=== PATIENT | male | born 1965 | race Hispanic/Latino ===

== ENCOUNTER 2022-05-10 11:15 | Inpatient (IN) | payer OTHER ==
[~2022-05-10 11:15] MED LIST: Iopamidol-370 76% 500 ML 1 ML ONE
[2022-05-10 12:23] LABS: ALT (SGPT) 9 U/L (8-55); AST (SGOT) 12 U/L (5-34); Albumin 4.6 g/dL (3.5-5.0); Alkaline Phosphatase 115 U/L (40-110); Anion Gap 15 mmol/L (10-20); BUN (Urea Nitrogen) 20 mg/dL (8.4-25.7); Bilirubin, Total 0.5 mg/dL (0.2-1.2); Calc. Creatinine Clearance 0 mL/min (70-130); Calcium 9.5 mg/dL (7.8-10.44); Carbon Dioxide 21 mmol/L (22-29); Chloride 105 mmol/L (98-107); Estimated GFR 80; Globulin 3.9 g/dL (2.4-3.5); Glucose 128 mg/dL (70-105); Lipase 21 U/L (8-78); Potassium 3.9 mmol/L (3.5-5.1); Protein, Total 8.5 g/dL (6.0-8.3); Sodium 137 mmol/L (136-145)
[2022-05-10 12:35] LABS: #Monocytes 0.5 thou/uL (0.11-0.59); #Neutrophils 11.8 thou/uL (1.40-6.50); %Basophils 0.1 % (0.0-1.0); %Eosinophils 0.1 % (0.0-10.0); %Lymphocytes 7.8 % (21.0-51.0); %Monocytes 3.4 % (0.0-10.0); %Neutrophils 88.6 % (42.0-75.0); Elliptocytes SLIGHT = 2-5 cells (100X) (0-1/hpf); Hemoglobin 9.2 g/dL (14.0-18.0); Hypochromia SLIGHT = 6-15 cells (100X) (0-5/hpf); MDiff Complete? YES; Mean Corpuscular HGB CONC 29.7 g/dL (32.0-36.0); Mean Corpuscular Volume 67.2 fL (78.0-98.0); Mean Platelet Volume 8.4 fL (7.4-10.4); Microcytosis MODERATE=15-30 cells (100X) (0-5/hpf); Platelet Count 570 thou/uL (130-400); Platelet Morphology Comment Appears Increased; RBC Distribution Width 16.4 % (11.5-14.5); Target Cells SLIGHT = 2-5 cells (100X) (0-1/hpf); White Blood Cell (WBC) Count 13.3 thou/uL (4.8-10.8)
[2022-05-10 13:21] LABS: Bilirubin Negative (Negative); Blood, Urine 3+ (Negative); Clarity Turbid (Clear); Glucose, Urine (Dipstick) Normal (Negative); Ketone, Urine Negative (Negative); Leukocyte 500 Leu/uL (Negative); Nitrite Negative (Negative); Protein, Urine (Dipstick) 30 mg/dL (Neg-Trace); Specific Gravity, Urine 1.015 (1.002-1.036); Squamous Epithelial None Seen HPF (0-3); Urobilinogen Normal mg/dL (Less than 2); pH, Urine 6.5 (5.0-9.0)
[2022-05-10 13:28] LABS: RBC/HPF 21-50 HPF (0-3); WBC/HPF 21-50 HPF (0-3)
[2022-05-10 13:29] LABS: Bacteria/HPF 1+ HPF (None Seen)
[2022-05-10] MEDS ORDERED: Ketorolac Tromethamine 30 MG/ML VIAL ONE (13:34)
[2022-05-10 13:57] LABS: Prothrombin Time 13.7 sec (12.0-14.7)
[2022-05-10 13:58] LABS: PTT 29.5 sec (22.9-36.1)
[2022-05-10 14:23] LABS: SARS-CoV-2 NAA Rapid Test Not Detected (NotDetected)
[2022-05-10] MEDS ORDERED: cefTRIAXone\\ROCEPHIN 2 GM VIAL ONE (14:41)
[2022-05-10] MEDS ORDERED: Aspirin Chewable 81 MG TAB ONE (14:59)
[2022-05-10] MEDS ORDERED: Rocuronium Bromide 10 MG/ML (10ML VIAL) ONE (15:04)
[2022-05-10] MEDS ORDERED: Midazolam HCl 2 mg/2 ml Vial ONE (15:04)
[2022-05-10] MEDS ORDERED: Fentanyl CADD 100 ML IV SCH (15:30)
[2022-05-10 15:32] LABS: Troponin I Less than 0.010 ng/mL (< 0.028)
[2022-05-10] MEDS ORDERED: Clindamycin/D5W 600 mg/50 ml Premix Bag ONE (15:33)
[2022-05-10] MEDS ORDERED: Aspirin 300 MG Suppository ONE (15:34)
[2022-05-10] MEDS ORDERED: Electrolyte Replacement Protocol 1 EACH IVPB SCH (15:37)
[2022-05-10 15:42] LABS: Actual Bicarbonate (HCO3a) 17.8 mEq/L (22-28); Analyzer IN Cardio ER; CO2 Tension 32.3 mmHg (35.0-45.0); Calcium, Ionized (arterial) 1.07 mmol/L (1.12-1.30); Carboxyhemoglobin (COHb) 0.7 gm% (0.0-3.0); Hemoglobin (Hb) 8.3 g/dL (14.0-18.0); O2 Tension (PaO2), arterial 139.5 mmHg (80.0-100.0); pH, Arterial 7.36 (7.35-7.45)
[2022-05-10 15:50] LABS: ALV-art Gradient 140.975 mmHg (0-20); Puncture Site LRA
[2022-05-10] MEDS ORDERED: Piperacillin/Tazobactam 3.375 GM in Sodium Chloride 0.9% 100 ML IVPB SCH (16:45)
[2022-05-10] MEDS ORDERED: Propofol 1,000 MG/100 ML VIAL IV ONE (16:50)
[2022-05-10] MEDS ORDERED: Aspirin 300 MG Suppository PR SCH (17:00)
[2022-05-10] MEDS ORDERED: Midazolam HCl 2 mg/2 ml Vial SLOW IVP PRN (17:42)
[2022-05-10] MEDS ORDERED: DISCONTINUE PREVIOUS NARCOTIC PAIN MEDICATIONS AND BENZODIAZEPINES FS SCH (17:45)
[2022-05-10] MEDS ORDERED: Propofol BOLUS 1,000 MG/100 ML VIAL IV PRN (17:45)
[2022-05-10] MEDS ORDERED: Propofol 1,000 MG/100 ML VIAL IV PRN (17:45)
[2022-05-10] MEDS ORDERED: Fentanyl BOLUS 250 ML IVPB PRN (17:45)
[2022-05-10] MEDS ORDERED: Morphine 2 MG/ML VIAL SLOW IVP PRN (17:45)
[2022-05-10] MEDS: Sodium Chloride 0.9% 1,000 ML IV SCH (17:45)
[2022-05-10 18:30] LABS: Hemoglobin A1c 5.5 % (4.0-6.0)
[2022-05-10 18:35] LABS: Magnesium 1.8 mg/dL (1.6-2.6)
[2022-05-10] MEDS: Multivitamins, Adult 10 ML, Folic Acid 1 MG, Thiamine HCl 100 MG in Dextrose 5 %-0.45 %... IV SCH (18:40)
[2022-05-10 18:43] LABS: Troponin I Less than 0.010 ng/mL (< 0.028)
[2022-05-10] MEDS: Famotidine/PF 20 mg/2ml Vial SLOW IVP SCH (20:58)
[2022-05-10] MEDS: Atorvastatin Calcium 40 MG TAB PO SCH (20:58)
[2022-05-10] MEDS ORDERED: Pantoprazole 40 MG VIAL IVP SCH (21:00)
[2022-05-10] MEDS ORDERED: Magnesium 2 GM/50 ML(in water) 2 GM in Premix Bag 1 BAG IVPB SCH (21:45)
[2022-05-10] MEDS: Piperacillin/Tazobactam 3.375 GM in Sodium Chloride 0.9% 100 ML IVPB SCH (22:34)
[2022-05-11 04:11] LABS: #Eosinphils 0.1 thou/uL (0.0-0.7); #Lymphocytes 2.7 thou/uL (1.20-3.40); #Monocytes 0.8 thou/uL (0.11-0.59); #Neutrophils 5.1 thou/uL (1.40-6.50); %Basophils 0.5 % (0.0-1.0); %Eosinophils 0.7 % (0.0-10.0); %Lymphocytes 30.9 % (21.0-51.0); %Monocytes 8.9 % (0.0-10.0); Hemoglobin 7.3 g/dL (14.0-18.0); Mean Corpuscular HGB CONC 28.4 g/dL (32.0-36.0); Mean Corpuscular Hemoglobin 19.5 pg (27.0-31.0); Mean Corpuscular Volume 68.6 fL (78.0-98.0); Mean Platelet Volume 8.4 fL (7.4-10.4); Platelet Count 418 thou/uL (130-400); RBC Distribution Width 16.6 % (11.5-14.5); Red Blood Cell (RBC) Count 3.76 mill/uL (4.70-6.10); White Blood Cell (WBC) Count 8.6 thou/uL (4.8-10.8)
[2022-05-11 04:22] LABS: Anion Gap 11 mmol/L (10-20); BUN (Urea Nitrogen) 18 mg/dL (8.4-25.7); Calc. Creatinine Clearance 88 mL/min (70-130); Calcium 8.6 mg/dL (7.8-10.44); Carbon Dioxide 23 mmol/L (22-29); Cardiac Risk 3.2 (Less than 4.5); Chloride 108 mmol/L (98-107); Cholesterol 119 mg/dl (< 200 Desired); Estimated GFR 82; Glucose 92 mg/dL (70-105); HDL Cholesterol 37 mg/dL (>60 Neg Risk); LDL Cholesterol, Calculated 69 mg/dL; Magnesium 2.5 mg/dL (1.6-2.6); Potassium 3.7 mmol/L (3.5-5.1); Sodium 138 mmol/L (136-145); Triglycerides 65 mg/dL (Less than 150)
[2022-05-11] MEDS: Piperacillin/Tazobactam 3.375 GM in Sodium Chloride 0.9% 100 ML IVPB SCH ×3 (06:40→22:10)
[2022-05-11] MEDS: Sodium Chloride 0.9% 1,000 ML IV SCH ×2 (08:50→17:45)
[2022-05-11] MEDS: Famotidine/PF 20 mg/2ml Vial SLOW IVP SCH ×2 (09:20→22:11)
[2022-05-11] MEDS: Enoxaparin Sodium 40 MG/0.4 ML SYRINGE SC SCH (09:20)
[2022-05-11] MEDS: Aspirin 300 MG Suppository PR SCH (10:07)
[2022-05-11] MEDS: Multivitamins, Adult 10 ML, Folic Acid 1 MG, Thiamine HCl 100 MG in Dextrose 5 %-0.45 %... IV SCH (17:17)
[2022-05-12] MEDS: Atorvastatin Calcium 40 MG TAB PO SCH ×2 (01:13→21:49)
[2022-05-12] MEDS: Piperacillin/Tazobactam 3.375 GM in Sodium Chloride 0.9% 100 ML IVPB SCH ×3 (05:37→21:47)
[2022-05-12 06:12] LABS: Anion Gap 13 mmol/L (10-20); BUN (Urea Nitrogen) 10 mg/dL (8.4-25.7); Calc. Creatinine Clearance 98 mL/min (70-130); Calcium 8.8 mg/dL (7.8-10.44); Carbon Dioxide 26 mmol/L (22-29); Chloride 101 mmol/L (98-107); Estimated GFR 92; Glucose 93 mg/dL (70-105); Potassium 3.5 mmol/L (3.5-5.1); Sodium 136 mmol/L (136-145)
[2022-05-12 06:18] LABS: #Lymphocytes 1.5 thou/uL (1.20-3.40); #Monocytes 0.6 thou/uL (0.11-0.59); #Neutrophils 5.5 thou/uL (1.40-6.50); %Basophils 0.5 % (0.0-1.0); %Eosinophils 0.5 % (0.0-10.0); %Lymphocytes 19.1 % (21.0-51.0); %Neutrophils 71.9 % (42.0-75.0); Hemoglobin 8.4 g/dL (14.0-18.0); Mean Corpuscular HGB CONC 29.3 g/dL (32.0-36.0); Mean Corpuscular Hemoglobin 20.2 pg (27.0-31.0); Mean Corpuscular Volume 68.8 fL (78.0-98.0); Mean Platelet Volume 8.6 fL (7.4-10.4); Platelet Count 457 thou/uL (130-400); RBC Distribution Width 16.8 % (11.5-14.5); Red Blood Cell (RBC) Count 4.16 mill/uL (4.70-6.10); White Blood Cell (WBC) Count 7.7 thou/uL (4.8-10.8)
[2022-05-12] MEDS ORDERED: Potassium Chloride 20 MEQ TAB PO SCH (08:00)
[2022-05-12] MEDS: Enoxaparin Sodium 40 MG/0.4 ML SYRINGE SC SCH (09:47)
[2022-05-12] MEDS: Aspirin 300 MG Suppository PR SCH (09:51)
[2022-05-12] MEDS: Famotidine/PF 20 mg/2ml Vial SLOW IVP SCH ×2 (09:51→21:47)
[2022-05-12] MEDS: Sodium Chloride 0.9% 1,000 ML IV SCH ×2 (09:52→21:48)
[2022-05-12] MEDS: Multivitamins, Adult 10 ML, Folic Acid 1 MG, Thiamine HCl 100 MG in Dextrose 5 %-0.45 %... IV SCH (19:37)
[2022-05-12] MEDS ORDERED: Tamsulosin HCl 0.4 MG CAP PO SCH (21:00)
[2022-05-12] MEDS: Doxazosin Mesylate 1 MG TAB PER TUBE SCH (21:49)
[2022-05-13 06:33] LABS: #Basophils 0.1 thou/uL (0.0-0.2); #Lymphocytes 1.5 thou/uL (1.20-3.40); #Monocytes 0.6 thou/uL (0.11-0.59); #Neutrophils 5.1 thou/uL (1.40-6.50); %Basophils 0.7 % (0.0-1.0); %Eosinophils 0.6 % (0.0-10.0); %Lymphocytes 20.8 % (21.0-51.0); %Monocytes 7.8 % (0.0-10.0); %Neutrophils 70.1 % (42.0-75.0); Hemoglobin 8.9 g/dL (14.0-18.0); Mean Corpuscular HGB CONC 28.3 g/dL (32.0-36.0); Mean Corpuscular Hemoglobin 19.6 pg (27.0-31.0); Mean Corpuscular Volume 69.3 fL (78.0-98.0); Platelet Count 475 thou/uL (130-400); RBC Distribution Width 16.5 % (11.5-14.5); Red Blood Cell (RBC) Count 4.53 mill/uL (4.70-6.10); White Blood Cell (WBC) Count 7.3 thou/uL (4.8-10.8)
[2022-05-13] MEDS: Piperacillin/Tazobactam 3.375 GM in Sodium Chloride 0.9% 100 ML IVPB SCH ×3 (06:43→21:27)
[2022-05-13] MEDS: Aspirin 300 MG Suppository PR SCH (09:50)
[2022-05-13] MEDS: Enoxaparin Sodium 40 MG/0.4 ML SYRINGE SC SCH (09:51)
[2022-05-13] MEDS: Famotidine/PF 20 mg/2ml Vial SLOW IVP SCH ×2 (09:51→21:28)
[2022-05-13 12:05] LABS: Hypochromia MODERATE=16-30 cells (100X) (0-5/hpf); Microcytosis MODERATE=15-30 cells (100X) (0-5/hpf); Ovalocytes MODERATE= 6-15 cells (100X) (0-1/hpf); Polychromasia SLIGHT = 2-3 cells (100X) (0-2/hpf)
[2022-05-13 14:58] LABS: Bilirubin Negative (Negative); Blood, Urine 3+ (Negative); Clarity Turbid (Clear); Glucose, Urine (Dipstick) Normal (Negative); Ketone, Urine 10 mg/dL (Negative); Leukocyte 250 Leu/uL (Negative); Nitrite Negative (Negative); Protein, Urine (Dipstick) 20 mg/dL (Neg-Trace); Specific Gravity, Urine 1.017 (1.002-1.036); Squamous Epithelial None Seen HPF (0-3); Urobilinogen Normal mg/dL (Less than 2); WBC/HPF 21-50 HPF (0-3)
[2022-05-13 15:01] LABS: Bacteria/HPF 1+ HPF (None Seen); Urine Culture Reflex Yes Yes
[2022-05-13] MEDS: Scopolamine 1.5 mg/72 hour Patch TD SCH (15:31)
[2022-05-13] MEDS: Nicotine 14 MG PATCH TOP SCH (15:31)
[2022-05-13] MEDS: Multivitamins, Adult 10 ML, Folic Acid 1 MG, Thiamine HCl 100 MG in Dextrose 5 %-0.45 %... IV SCH (18:30)
[2022-05-13] MEDS: Sodium Chloride 0.9% 1,000 ML IV SCH (21:20)
[2022-05-13] MEDS: Doxazosin Mesylate 1 MG TAB PER TUBE SCH (21:28)
[2022-05-13] MEDS: Atorvastatin Calcium 40 MG TAB PO SCH (21:28)
[2022-05-14] MEDS: Sodium Chloride 0.9% 1,000 ML IV SCH ×2 (03:46→17:18)
[2022-05-14] MEDS: Piperacillin/Tazobactam 3.375 GM in Sodium Chloride 0.9% 100 ML IVPB SCH ×3 (06:14→20:55)
[2022-05-14] MEDS: Enoxaparin Sodium 40 MG/0.4 ML SYRINGE SC SCH (09:14)
[2022-05-14] MEDS: Aspirin 300 MG Suppository PR SCH (09:14)
[2022-05-14] MEDS: Famotidine/PF 20 mg/2ml Vial SLOW IVP SCH ×2 (09:14→20:55)
[2022-05-14] MEDS: Nicotine 14 MG PATCH TOP SCH (13:32)
[2022-05-14] MEDS: Multivitamins, Adult 10 ML, Folic Acid 1 MG, Thiamine HCl 100 MG in Dextrose 5 %-0.45 %... IV SCH (16:24)
[2022-05-14] MEDS: Atorvastatin Calcium 40 MG TAB PO SCH (20:52)
[2022-05-14] MEDS: Doxazosin Mesylate 1 MG TAB PER TUBE SCH (20:56)
[2022-05-15] MEDS: Sodium Chloride 0.9% 1,000 ML IV SCH ×2 (05:05→16:27)
[2022-05-15] MEDS: Piperacillin/Tazobactam 3.375 GM in Sodium Chloride 0.9% 100 ML IVPB SCH ×3 (05:06→22:54)
[2022-05-15] MEDS: Famotidine/PF 20 mg/2ml Vial SLOW IVP SCH ×2 (09:34→22:53)
[2022-05-15] MEDS: Aspirin 300 MG Suppository PR SCH (09:42)
[2022-05-15] MEDS: Nicotine 14 MG PATCH TOP SCH (12:37)
[2022-05-15] MEDS: Multivitamins, Adult 10 ML, Folic Acid 1 MG, Thiamine HCl 100 MG in Dextrose 5 %-0.45 %... IV SCH (17:38)
[2022-05-15] MEDS ORDERED: Amlodipine 5 MG TAB PER TUBE SCH (19:15)
[2022-05-15] MEDS: Atorvastatin Calcium 40 MG TAB PO SCH (22:53)
[2022-05-15] MEDS: Doxazosin Mesylate 1 MG TAB PER TUBE SCH (22:53)
[2022-05-16] MEDS: Piperacillin/Tazobactam 3.375 GM in Sodium Chloride 0.9% 100 ML IVPB SCH ×3 (06:11→20:50)
[2022-05-16] MEDS: Famotidine/PF 20 mg/2ml Vial SLOW IVP SCH ×2 (08:22→20:50)
[2022-05-16] MEDS: Aspirin 300 MG Suppository PR SCH (08:24)
[2022-05-16] MEDS ORDERED: Amlodipine 5 MG TAB PER TUBE SCH (09:00)
[2022-05-16] MEDS: Enoxaparin Sodium 40 MG/0.4 ML SYRINGE SC SCH (09:46)
[2022-05-16] MEDS: Nicotine 14 MG PATCH TOP SCH (13:01)
[2022-05-16] MEDS: Scopolamine 1.5 mg/72 hour Patch TD SCH (14:59)
[2022-05-16] MEDS: Multivitamins, Adult 10 ML, Folic Acid 1 MG, Thiamine HCl 100 MG in Dextrose 5 %-0.45 %... IV SCH (17:06)
[2022-05-16] MEDS: Atorvastatin Calcium 40 MG TAB PO SCH (20:59)
[2022-05-16] MEDS: Doxazosin Mesylate 1 MG TAB PER TUBE SCH (20:59)
[2022-05-17] MEDS: Piperacillin/Tazobactam 3.375 GM in Sodium Chloride 0.9% 100 ML IVPB SCH ×3 (05:20→21:37)
[2022-05-17] MEDS ORDERED: Amlodipine 5 MG TAB PER TUBE SCH (07:34)
[2022-05-17] MEDS: Lisinopril 5 MG TAB PER TUBE SCH ×2 (09:59→11:38)
[2022-05-17] MEDS: Famotidine/PF 20 mg/2ml Vial SLOW IVP SCH ×3 (09:59→21:37)
[2022-05-17] MEDS: Enoxaparin Sodium 40 MG/0.4 ML SYRINGE SC SCH (11:37)
[2022-05-17] MEDS: Aspirin 300 MG Suppository PR SCH (11:38)
[2022-05-17] MEDS: Nicotine 14 MG PATCH TOP SCH (14:33)
[2022-05-17] MEDS: Multivitamins, Adult 10 ML, Folic Acid 1 MG, Thiamine HCl 100 MG in Dextrose 5 %-0.45 %... IV SCH (17:15)
[2022-05-17] MEDS: Doxazosin Mesylate 1 MG TAB PER TUBE SCH (21:37)
[2022-05-17] MEDS: Atorvastatin Calcium 40 MG TAB PO SCH (21:37)
[2022-05-18 05:24] LABS: #Basophils 0.1 thou/uL (0.0-0.2); #Eosinphils 0.3 thou/uL (0.0-0.7); #Lymphocytes 1.2 thou/uL (1.20-3.40); #Monocytes 0.4 thou/uL (0.11-0.59); #Neutrophils 7.1 thou/uL (1.40-6.50); %Basophils 0.6 % (0.0-1.0); %Eosinophils 3.1 % (0.0-10.0); %Monocytes 4.9 % (0.0-10.0); %Neutrophils 78.3 % (42.0-75.0); Hemoglobin 8.9 g/dL (14.0-18.0); Mean Corpuscular Hemoglobin 19.9 pg (27.0-31.0); Mean Platelet Volume 8.3 fL (7.4-10.4); Platelet Count 403 thou/uL (130-400); RBC Distribution Width 16.6 % (11.5-14.5); Red Blood Cell (RBC) Count 4.47 mill/uL (4.70-6.10)
[2022-05-18] MEDS: Piperacillin/Tazobactam 3.375 GM in Sodium Chloride 0.9% 100 ML IVPB SCH ×3 (05:28→22:11)
[2022-05-18 05:42] LABS: Anion Gap 11 mmol/L (10-20); BUN (Urea Nitrogen) 11 mg/dL (8.4-25.7); Calc. Creatinine Clearance 118 mL/min (70-130); Calcium 8.9 mg/dL (7.8-10.44); Carbon Dioxide 31 mmol/L (22-29); Chloride 98 mmol/L (98-107); Estimated GFR 106; Glucose 169 mg/dL (70-105); Potassium 3.5 mmol/L (3.5-5.1); Sodium 136 mmol/L (136-145)
[2022-05-18] MEDS ORDERED: Potassium Chloride 20 MEQ TAB PO SCH (08:00)
[2022-05-18] MEDS: Famotidine/PF 20 mg/2ml Vial SLOW IVP SCH ×2 (09:17→22:11)
[2022-05-18] MEDS: Lisinopril 5 MG TAB PER TUBE SCH (09:17)
[2022-05-18] MEDS: Aspirin 300 MG Suppository PR SCH (09:17)
[2022-05-18] MEDS: Enoxaparin Sodium 40 MG/0.4 ML SYRINGE SC SCH (10:04)
[2022-05-18] MEDS: Nicotine 14 MG PATCH TOP SCH (11:28)
[2022-05-18] MEDS: Multivitamins, Adult 10 ML, Folic Acid 1 MG, Thiamine HCl 100 MG in Dextrose 5 %-0.45 %... IV SCH (17:24)
[2022-05-18] MEDS: Doxazosin Mesylate 1 MG TAB PER TUBE SCH (22:11)
[2022-05-18] MEDS: Atorvastatin Calcium 40 MG TAB PO SCH (22:11)
[2022-05-19] MEDS: Lisinopril 5 MG TAB PER TUBE SCH (08:21)
[2022-05-19] MEDS: Piperacillin/Tazobactam 3.375 GM in Sodium Chloride 0.9% 100 ML IVPB SCH ×3 (08:24→21:56)
[2022-05-19] MEDS: Famotidine/PF 20 mg/2ml Vial SLOW IVP SCH (08:25)
[2022-05-19] MEDS: Enoxaparin Sodium 40 MG/0.4 ML SYRINGE SC SCH (08:25)
[2022-05-19] MEDS ORDERED: Aspirin 325 MG TAB PER TUBE SCH (09:00)
[2022-05-19] MEDS: Nicotine 14 MG PATCH TOP SCH (11:21)
[2022-05-19] MEDS: Scopolamine 1.5 mg/72 hour Patch TD SCH (13:30)
[2022-05-19] MEDS ORDERED: Aspirin 300 MG Suppository PR SCH (15:00)
[2022-05-19] MEDS ORDERED: Fentanyl CADD 0 ML ONE (16:10)
[2022-05-19] MEDS ORDERED: Ventilator Sedation Protocol FS PRN (16:11)
[2022-05-19 16:18] LABS: Actual Bicarbonate (HCO3a) 32.9 mEq/L (22-28); Base Excess (BEa) 3.5 mEq/L (-2.0 to +3.0); Calcium, Ionized (arterial) 1.11 mmol/L (1.12-1.30); Carboxyhemoglobin (COHb) 1.3 gm% (0.0-3.0); O2 Tension (PaO2), arterial 96.8 mmHg (80.0-100.0); Potassium - ABG Lab 4.32 mmol/L (3.70-5.30)
[2022-05-19 16:19] LABS: Puncture Site LBA
[2022-05-19] MEDS ORDERED: Fentanyl BOLUS 250 ML IVPB PRN (16:30)
[2022-05-19] MEDS ORDERED: Propofol BOLUS 1,000 MG/100 ML VIAL IV PRN (16:30)
[2022-05-19] MEDS ORDERED: DISCONTINUE PREVIOUS NARCOTIC PAIN MEDICATIONS AND BENZODIAZEPINES FS SCH (16:30)
[2022-05-19] MEDS ORDERED: Morphine 4 MG/ML VIAL SLOW IVP PRN (16:30)
[2022-05-19] MEDS: Fentanyl CADD 100 ML IV SCH (16:42)
[2022-05-19 16:55] LABS: Anion Gap 18 mmol/L (10-20); BUN (Urea Nitrogen) 15 mg/dL (8.4-25.7); Calc. Creatinine Clearance 86 mL/min (70-130); Calcium 8.1 mg/dL (7.8-10.44); Carbon Dioxide 26 mmol/L (22-29); Chloride 98 mmol/L (98-107); Estimated GFR 83; Glucose 218 mg/dL (70-105); Magnesium 2.1 mg/dL (1.6-2.6); Potassium 4.5 mmol/L (3.5-5.1); Sodium 137 mmol/L (136-145)
[2022-05-19 17:24] LABS: Troponin I 0.089 ng/mL (< 0.028)
[2022-05-19] MEDS: Vasopressin 20 UNIT, Admixture Fee 1 EACH in Sodium Chloride 0.9% 50 ML IV SCH ×2 (17:24→22:47)
[2022-05-19] MEDS: NOREPINEPHRINE 8 MG/250 ML-D5W 250 ML IVPB SCH (17:25)
[2022-05-19 17:57] LABS: Bacteria/HPF 2+ HPF (None Seen); Bilirubin Negative (Negative); Blood, Urine Trace (Negative); Clarity Turbid (Clear); Glucose, Urine (Dipstick) Normal (Negative); Ketone, Urine Negative (Negative); Leukocyte 75 Leu/uL (Negative); Nitrite Negative (Negative); Protein, Urine (Dipstick) 300 mg/dL (Neg-Trace); RBC/HPF 21-50 HPF (0-3); Specific Gravity, Urine 1.018 (1.002-1.036); Squamous Epithelial None Seen HPF (0-3); Urobilinogen Normal mg/dL (Less than 2); WBC/HPF 21-50 HPF (0-3); pH, Urine 6.5 (5.0-9.0)
[2022-05-19] MEDS ORDERED: Sodium Chloride 0.9% 1,000 ML IV SCH (18:30)
[2022-05-19] MEDS ORDERED: Lactated Ringer's 1,000 ML IV SCH ×2 (18:30→21:15)
[2022-05-19] MEDS: Multivitamins, Adult 10 ML, Folic Acid 1 MG, Thiamine HCl 100 MG in Dextrose 5 %-0.45 %... IV SCH (19:02)
[2022-05-19 21:14] LABS: Lactic Acid 1.6 mmol/L (0.5-2.2)
[2022-05-19 21:44] LABS: Troponin I 0.369 ng/mL (< 0.028)
[2022-05-19] MEDS: Tamsulosin HCl 0.4 MG CAP PO SCH (21:56)
[2022-05-19] MEDS: Atorvastatin Calcium 40 MG TAB PO SCH (21:56)
[2022-05-19] MEDS: Doxazosin Mesylate 1 MG TAB PER TUBE SCH (21:58)
[2022-05-20 01:34] LABS: Troponin I 0.405 ng/mL (< 0.028)
[2022-05-20] MEDS: NOREPINEPHRINE 8 MG/250 ML-D5W 250 ML IVPB SCH (03:46)
[2022-05-20] MEDS: Propofol 1,000 MG/100 ML VIAL IV PRN (03:49)
[2022-05-20 04:28] LABS: ALT (SGPT) 51 U/L (8-55); AST (SGOT) 49 U/L (5-34); Albumin 3.2 g/dL (3.5-5.0); Alkaline Phosphatase 67 U/L (40-110); Anion Gap 11 mmol/L (10-20); BUN (Urea Nitrogen) 14 mg/dL (8.4-25.7); Bilirubin, Total 0.6 mg/dL (0.2-1.2); Calc. Creatinine Clearance 107 mL/min (70-130); Calcium 8.2 mg/dL (7.8-10.44); Carbon Dioxide 26 mmol/L (22-29); Chloride 100 mmol/L (98-107); Estimated GFR 102; Globulin 2.7 g/dL (2.4-3.5); Glucose 123 mg/dL (70-105); Magnesium 1.6 mg/dL (1.6-2.6); Potassium 3.6 mmol/L (3.5-5.1); Protein, Total 5.9 g/dL (6.0-8.3); Sodium 133 mmol/L (136-145)
[2022-05-20 04:41] LABS: #Basophils 0.1 thou/uL (0.0-0.2); #Eosinphils 0.1 thou/uL (0.0-0.7); #Lymphocytes 2.3 thou/uL (1.20-3.40); #Monocytes 0.9 thou/uL (0.11-0.59); #Neutrophils 14.9 thou/uL (1.40-6.50); %Basophils 0.5 % (0.0-1.0); %Eosinophils 0.5 % (0.0-10.0); %Lymphocytes 12.6 % (21.0-51.0); %Monocytes 4.9 % (0.0-10.0); %Neutrophils 81.5 % (42.0-75.0); Hemoglobin 7.4 g/dL (14.0-18.0); Mean Corpuscular HGB CONC 28.9 g/dL (32.0-36.0); Mean Corpuscular Volume 69.1 fL (78.0-98.0); Mean Platelet Volume 8.4 fL (7.4-10.4); Platelet Count 389 thou/uL (130-400); Red Blood Cell (RBC) Count 3.72 mill/uL (4.70-6.10); White Blood Cell (WBC) Count 18.3 thou/uL (4.8-10.8)
[2022-05-20 04:42] LABS: Elliptocytes SLIGHT = 2-5 cells (100X) (0-1/hpf); Hypochromia SLIGHT = 6-15 cells (100X) (0-5/hpf); MDiff Complete? YES; Microcytosis MODERATE=15-30 cells (100X) (0-5/hpf)
[2022-05-20] MEDS ORDERED: Magnesium 2 GM/50 ML(in water) 2 GM in Premix Bag 1 BAG IVPB SCH (06:00)
[2022-05-20] MEDS: Vasopressin 20 UNIT, Admixture Fee 1 EACH in Sodium Chloride 0.9% 50 ML IV SCH (06:08)
[2022-05-20] MEDS: Piperacillin/Tazobactam 3.375 GM in Sodium Chloride 0.9% 100 ML IVPB SCH ×3 (06:09→21:55)
[2022-05-20 07:18] LABS: CO2 Tension 28.6 mmHg (35.0-45.0); Calcium, Ionized (arterial) 1.09 mmol/L (1.12-1.30); Carboxyhemoglobin (COHb) 0.9 gm% (0.0-3.0); Hemoglobin (Hb) 8.1 g/dL (14.0-18.0); O2 Tension (PaO2), arterial 150.4 mmHg (80.0-100.0); Potassium - ABG Lab 3.56 mmol/L (3.70-5.30)
[2022-05-20 07:21] LABS: pH, Arterial 7.58 (7.35-7.45)
[2022-05-20 07:22] LABS: Puncture Site Arterial Line
[2022-05-20] MEDS: Enoxaparin Sodium 40 MG/0.4 ML SYRINGE SC SCH (08:34)
[2022-05-20] MEDS: Pantoprazole 40 MG VIAL IVP SCH (08:34)
[2022-05-20] MEDS: Aspirin 300 MG Suppository PR SCH (08:35)
[2022-05-20] MEDS: Lisinopril 5 MG TAB PER TUBE SCH (09:56)
[2022-05-20] MEDS: Nicotine 14 MG PATCH TOP SCH (13:10)
[2022-05-20] MEDS: Midazolam HCl 2 mg/2 ml Vial SLOW IVP PRN (17:20)
[2022-05-20] MEDS ORDERED: Fentanyl 100 MCG/2 ML VIAL ONE (17:39)
[2022-05-20] MEDS: Fentanyl CADD 100 ML IV SCH (17:45)
[2022-05-20] MEDS: Multivitamins, Adult 10 ML, Folic Acid 1 MG, Thiamine HCl 100 MG in Dextrose 5 %-0.45 %... IV SCH (18:45)
[2022-05-20] MEDS: Tamsulosin HCl 0.4 MG CAP PO SCH (21:55)
[2022-05-20] MEDS: Atorvastatin Calcium 40 MG TAB PO SCH (21:55)
[2022-05-20] MEDS: Doxazosin Mesylate 1 MG TAB PER TUBE SCH (21:58)
[2022-05-21] MEDS: NOREPINEPHRINE 8 MG/250 ML-D5W 250 ML IVPB SCH ×2 (03:51→15:53)
[2022-05-21 04:53] LABS: ALT (SGPT) 38 U/L (8-55); AST (SGOT) 27 U/L (5-34); Albumin 3.2 g/dL (3.5-5.0); Alkaline Phosphatase 68 U/L (40-110); Anion Gap 10 mmol/L (10-20); BUN (Urea Nitrogen) 9 mg/dL (8.4-25.7); Bilirubin, Total 0.4 mg/dL (0.2-1.2); Calc. Creatinine Clearance 114 mL/min (70-130); Calcium 8.3 mg/dL (7.8-10.44); Carbon Dioxide 27 mmol/L (22-29); Chloride 100 mmol/L (98-107); Estimated GFR 103; Globulin 2.9 g/dL (2.4-3.5); Glucose 129 mg/dL (70-105); Magnesium 1.9 mg/dL (1.6-2.6); Potassium 3.5 mmol/L (3.5-5.1); Protein, Total 6.1 g/dL (6.0-8.3); Sodium 133 mmol/L (136-145)
[2022-05-21] MEDS ORDERED: Magnesium 2 GM/50 ML(in water) 2 GM in Premix Bag 1 BAG IVPB SCH (05:30)
[2022-05-21] MEDS: Piperacillin/Tazobactam 3.375 GM in Sodium Chloride 0.9% 100 ML IVPB SCH ×3 (05:49→21:50)
[2022-05-21 06:12] LABS: Band 8 % (5-11); Hemoglobin 7.4 g/dL (14.0-18.0); Lymphocytes 5 % (21-51); MDiff Complete? YES; Mean Corpuscular HGB CONC 28.5 g/dL (32.0-36.0); Mean Corpuscular Hemoglobin 19.9 pg (27.0-31.0); Mean Corpuscular Volume 69.8 fL (78.0-98.0); Monocytes 3 % (0-10); Neutrophil 84 % (42-75); Platelet Count 376 thou/uL (130-400); RBC Distribution Width 16.5 % (11.5-14.5); White Blood Cell (WBC) Count 20.9 thou/uL (4.8-10.8)
[2022-05-21 07:32] LABS: Actual Bicarbonate (HCO3a) 26.1 mEq/L (22-28); Base Excess (BEa) 1.5 mEq/L (-2.0 to +3.0); CO2 Tension 41.4 mmHg (35.0-45.0); Calcium, Ionized (arterial) 1.12 mmol/L (1.12-1.30); Carboxyhemoglobin (COHb) 1.3 gm% (0.0-3.0); Hemoglobin (Hb) 8.2 g/dL (14.0-18.0); O2 Tension (PaO2), arterial 74.4 mmHg (80.0-100.0); Potassium - ABG Lab 3.48 mmol/L (3.70-5.30); pH, Arterial 7.42 (7.35-7.45)
[2022-05-21 07:33] LABS: Puncture Site Arterial Line
[2022-05-21] MEDS: Pantoprazole 40 MG VIAL IVP SCH (09:24)
[2022-05-21] MEDS: Enoxaparin Sodium 40 MG/0.4 ML SYRINGE SC SCH (09:24)
[2022-05-21] MEDS: Aspirin 300 MG Suppository PR SCH (09:24)
[2022-05-21] MEDS: Lisinopril 5 MG TAB PER TUBE SCH (09:25)
[2022-05-21] MEDS ORDERED: Potassium Chloride 20 MEQ TAB PER TUBE SCH (11:15)
[2022-05-21] MEDS: Propofol 1,000 MG/100 ML VIAL IV PRN (11:17)
[2022-05-21] MEDS ORDERED: VANCOMYCIN 1.75 GM/500 ML BAG 1.75 GM in Premix Bag 1 BAG IVPB SCH (13:45)
[2022-05-21] MEDS: Nicotine 14 MG PATCH TOP SCH (14:02)
[2022-05-21] MEDS ORDERED: Fentanyl CADD 100 ML ONE (14:39)
[2022-05-21] MEDS: Fentanyl CADD 100 ML IV SCH (14:46)
[2022-05-21] MEDS: Multivitamins, Adult 10 ML, Folic Acid 1 MG, Thiamine HCl 100 MG in Dextrose 5 %-0.45 %... IV SCH (16:04)
[2022-05-21] MEDS ORDERED: Silodosin 8 MG CAP PO SCH (21:00)
[2022-05-21] MEDS: Atorvastatin Calcium 40 MG TAB PO SCH (21:50)
[2022-05-22 03:55] LABS: #Basophils 0.1 thou/uL (0.0-0.2); #Eosinphils 0.5 thou/uL (0.0-0.7); #Lymphocytes 1.3 thou/uL (1.20-3.40); #Monocytes 0.8 thou/uL (0.11-0.59); #Neutrophils 12.4 thou/uL (1.40-6.50); %Basophils 0.5 % (0.0-1.0); %Eosinophils 3.5 % (0.0-10.0); %Lymphocytes 8.5 % (21.0-51.0); %Monocytes 5.2 % (0.0-10.0); %Neutrophils 82.4 % (42.0-75.0); Hemoglobin 7.1 g/dL (14.0-18.0); Mean Corpuscular HGB CONC 28.3 g/dL (32.0-36.0); Mean Corpuscular Volume 70.8 fL (78.0-98.0); Mean Platelet Volume 8.3 fL (7.4-10.4); Platelet Count 358 thou/uL (130-400); RBC Distribution Width 16.5 % (11.5-14.5); Red Blood Cell (RBC) Count 3.55 mill/uL (4.70-6.10); White Blood Cell (WBC) Count 15.1 thou/uL (4.8-10.8)
[2022-05-22] MEDS: Propofol 1,000 MG/100 ML VIAL IV PRN ×2 (04:00→13:49)
[2022-05-22 04:16] LABS: ALT (SGPT) 28 U/L (8-55); AST (SGOT) 22 U/L (5-34); Alkaline Phosphatase 72 U/L (40-110); Anion Gap 10 mmol/L (10-20); BUN (Urea Nitrogen) 8 mg/dL (8.4-25.7); Bilirubin, Total 0.3 mg/dL (0.2-1.2); Calc. Creatinine Clearance 131 mL/min (70-130); Calcium 8.3 mg/dL (7.8-10.44); Carbon Dioxide 28 mmol/L (22-29); Chloride 101 mmol/L (98-107); Estimated GFR 107; Globulin 3.3 g/dL (2.4-3.5); Glucose 127 mg/dL (70-105); Potassium 3.3 mmol/L (3.5-5.1); Protein, Total 6.3 g/dL (6.0-8.3); Sodium 136 mmol/L (136-145)
[2022-05-22] MEDS ORDERED: Potassium Chloride 20 MEQ TAB PO SCH (04:30)
[2022-05-22] MEDS: NOREPINEPHRINE 8 MG/250 ML-D5W 250 ML IVPB SCH (05:40)
[2022-05-22] MEDS: VANCOMYCIN 1.25 GM/250 ML BAG 1.25 GM in Premix Bag 1 BAG IVPB SCH ×2 (05:42→16:42)
[2022-05-22] MEDS: Piperacillin/Tazobactam 3.375 GM in Sodium Chloride 0.9% 100 ML IVPB SCH ×3 (06:00→23:33)
[2022-05-22] MEDS ORDERED: Potassium Bicarbonate/Cit Ac 20 MEQ TAB PO SCH (06:15)
[2022-05-22 07:43] LABS: Actual Bicarbonate (HCO3a) 32.1 mEq/L (22-28); Base Excess (BEa) 6.1 mEq/L (-2.0 to +3.0); CO2 Tension 55.9 mmHg (35.0-45.0); Calcium, Ionized (arterial) 1.15 mmol/L (1.12-1.30); Carboxyhemoglobin (COHb) 1.1 gm% (0.0-3.0); Hemoglobin (Hb) 7.9 g/dL (14.0-18.0); Potassium - ABG Lab 3.81 mmol/L (3.70-5.30); pH, Arterial 7.38 (7.35-7.45)
[2022-05-22 08:04] LABS: O2 Tension (PaO2), arterial 53.5 mmHg (80.0-100.0)
[2022-05-22 08:05] LABS: ALV-art Gradient 161.825 mmHg (0-20); Puncture Site Arterial Line
[2022-05-22] MEDS: Aspirin 325 MG TAB PER TUBE SCH (08:58)
[2022-05-22] MEDS: Enoxaparin Sodium 40 MG/0.4 ML SYRINGE SC SCH (08:59)
[2022-05-22] MEDS: Lisinopril 5 MG TAB PER TUBE SCH (08:59)
[2022-05-22] MEDS: Pantoprazole 40 MG VIAL IVP SCH (08:59)
[2022-05-22 11:00] LABS: Potassium 3.9 mmol/L (3.5-5.1)
[2022-05-22] MEDS: Nicotine 14 MG PATCH TOP SCH (12:19)
[2022-05-22] MEDS: Scopolamine 1.5 mg/72 hour Patch TD SCH (15:08)
[2022-05-22] MEDS ORDERED: Potassium Bicarbonate/Cit Ac 20 MEQ TAB PER TUBE SCH (15:15)
[2022-05-22] MEDS: Acetaminophen 650 MG/20.3 ML UDCUP PER TUBE PRN (16:41)
[2022-05-22] MEDS: Atorvastatin Calcium 40 MG TAB PO SCH (20:11)
[2022-05-23 04:05] LABS: #Eosinphils 0.3 thou/uL (0.0-0.7); #Lymphocytes 0.8 thou/uL (1.20-3.40); #Monocytes 0.5 thou/uL (0.11-0.59); %Basophils 0.3 % (0.0-1.0); %Eosinophils 3.2 % (0.0-10.0); %Lymphocytes 8.1 % (21.0-51.0); %Monocytes 5.5 % (0.0-10.0); %Neutrophils 82.9 % (42.0-75.0); Hemoglobin 7.1 g/dL (14.0-18.0); Mean Corpuscular HGB CONC 27.9 g/dL (32.0-36.0); Mean Corpuscular Hemoglobin 19.9 pg (27.0-31.0); Mean Corpuscular Volume 71.2 fL (78.0-98.0); Mean Platelet Volume 8.6 fL (7.4-10.4); Platelet Count 391 thou/uL (130-400); RBC Distribution Width 16.2 % (11.5-14.5); Red Blood Cell (RBC) Count 3.57 mill/uL (4.70-6.10); White Blood Cell (WBC) Count 9.7 thou/uL (4.8-10.8)
[2022-05-23 04:12] LABS: Vancomycin, Trough 8.2 ug/mL
[2022-05-23 04:13] LABS: Anion Gap 10 mmol/L (10-20); BUN (Urea Nitrogen) 10 mg/dL (8.4-25.7); Calc. Creatinine Clearance 129 mL/min (70-130); Calcium 8.4 mg/dL (7.8-10.44); Carbon Dioxide 32 mmol/L (22-29); Chloride 98 mmol/L (98-107); Estimated GFR 107; Glucose 127 mg/dL (70-105); Potassium 3.4 mmol/L (3.5-5.1); Sodium 137 mmol/L (136-145)
[2022-05-23] MEDS ORDERED: Potassium Chloride 20 MEQ TAB PO SCH (04:45)
[2022-05-23] MEDS: Piperacillin/Tazobactam 3.375 GM in Sodium Chloride 0.9% 100 ML IVPB SCH ×3 (04:55→21:05)
[2022-05-23] MEDS: Acetaminophen 650 MG/20.3 ML UDCUP PER TUBE PRN (04:55)
[2022-05-23] MEDS: VANCOMYCIN 1.75 GM/500 ML BAG 1.75 GM in Premix Bag 1 BAG IVPB SCH ×2 (04:56→17:40)
[2022-05-23 07:34] LABS: Actual Bicarbonate (HCO3a) 32.2 mEq/L (22-28); Base Excess (BEa) 6.2 mEq/L (-2.0 to +3.0); CO2 Tension 53.9 mmHg (35.0-45.0); Calcium, Ionized (arterial) 1.12 mmol/L (1.12-1.30); Carboxyhemoglobin (COHb) 0.5 gm% (0.0-3.0); Hemoglobin (Hb) 10.1 g/dL (14.0-18.0); Potassium - ABG Lab 3.61 mmol/L (3.70-5.30); pH, Arterial 7.39 (7.35-7.45)
[2022-05-23 07:36] LABS: ALV-art Gradient 130.825 mmHg (0-20); Puncture Site RRA
[2022-05-23] MEDS ORDERED: AcetaZOLAMIDE 250 MG TAB PO SCH (09:00)
[2022-05-23] MEDS: Lisinopril 5 MG TAB PER TUBE SCH (10:06)
[2022-05-23] MEDS: Aspirin 325 MG TAB PER TUBE SCH (10:06)
[2022-05-23] MEDS: Enoxaparin Sodium 40 MG/0.4 ML SYRINGE SC SCH (10:07)
[2022-05-23] MEDS: Pantoprazole 40 MG VIAL IVP SCH (10:07)
[2022-05-23] MEDS: AcetaZOLAMIDE 250 MG TAB PER TUBE SCH ×2 (10:07→20:18)
[2022-05-23] MEDS: Propofol 1,000 MG/100 ML VIAL IV PRN ×2 (11:35→21:17)
[2022-05-23] MEDS: Nicotine 14 MG PATCH TOP SCH (11:36)
[2022-05-23] MEDS: Atorvastatin Calcium 40 MG TAB PO SCH (20:18)
[2022-05-24 04:20] LABS: Anion Gap 10 mmol/L (10-20); BUN (Urea Nitrogen) 8 mg/dL (8.4-25.7); Calc. Creatinine Clearance 119 mL/min (70-130); Calcium 8.8 mg/dL (7.8-10.44); Carbon Dioxide 24 mmol/L (22-29); Chloride 104 mmol/L (98-107); Estimated GFR 104; Glucose 111 mg/dL (70-105); Potassium 3.8 mmol/L (3.5-5.1); Sodium 134 mmol/L (136-145)
[2022-05-24] MEDS: VANCOMYCIN 1.75 GM/500 ML BAG 1.75 GM in Premix Bag 1 BAG IVPB SCH ×2 (04:24→19:40)
[2022-05-24 04:27] LABS: #Basophils 0.1 thou/uL (0.0-0.2); #Eosinphils 0.6 thou/uL (0.0-0.7); #Lymphocytes 0.8 thou/uL (1.20-3.40); #Monocytes 0.5 thou/uL (0.11-0.59); #Neutrophils 8.7 thou/uL (1.40-6.50); %Basophils 0.8 % (0.0-1.0); %Eosinophils 5.2 % (0.0-10.0); %Lymphocytes 7.4 % (21.0-51.0); %Monocytes 4.3 % (0.0-10.0); %Neutrophils 82.3 % (42.0-75.0); Hemoglobin 7.3 g/dL (14.0-18.0); Mean Corpuscular HGB CONC 27.6 g/dL (32.0-36.0); Mean Corpuscular Hemoglobin 19.9 pg (27.0-31.0); Mean Corpuscular Volume 72.1 fL (78.0-98.0); Mean Platelet Volume 8.5 fL (7.4-10.4); Platelet Count 463 thou/uL (130-400); RBC Distribution Width 16.4 % (11.5-14.5); Red Blood Cell (RBC) Count 3.66 mill/uL (4.70-6.10); White Blood Cell (WBC) Count 10.5 thou/uL (4.8-10.8)
[2022-05-24] MEDS: Propofol 1,000 MG/100 ML VIAL IV PRN ×2 (06:07→19:42)
[2022-05-24] MEDS: Piperacillin/Tazobactam 3.375 GM in Sodium Chloride 0.9% 100 ML IVPB SCH ×3 (06:07→21:05)
[2022-05-24 07:14] LABS: Actual Bicarbonate (HCO3a) 22.9 mEq/L (22-28); Base Excess (BEa) -2.7 mEq/L (-2.0 to +3.0); CO2 Tension 43.5 mmHg (35.0-45.0); Calcium, Ionized (arterial) 1.24 mmol/L (1.12-1.30); Carboxyhemoglobin (COHb) 0.9 gm% (0.0-3.0); Hemoglobin (Hb) 8.3 g/dL (14.0-18.0); O2 Tension (PaO2), arterial 91.7 mmHg (80.0-100.0); Potassium - ABG Lab 3.88 mmol/L (3.70-5.30); Puncture Site RRA; pH, Arterial 7.34 (7.35-7.45)
[2022-05-24 07:15] LABS: ALV-art Gradient 139.125 mmHg (0-20)
[2022-05-24] MEDS: Enoxaparin Sodium 40 MG/0.4 ML SYRINGE SC SCH (08:56)
[2022-05-24] MEDS: Pantoprazole 40 MG VIAL IVP SCH (08:57)
[2022-05-24] MEDS: Lisinopril 5 MG TAB PER TUBE SCH (08:57)
[2022-05-24] MEDS: Aspirin 325 MG TAB PER TUBE SCH (08:57)
[2022-05-24] MEDS ORDERED: Scopolamine 1.5 mg/72 hour Patch TD SCH (09:00)
[2022-05-24] MEDS: Metoclopramide HCl 10 MG/2 ML VIAL IVP SCH ×3 (09:30→21:05)
[2022-05-24] MEDS: Polyethylene Glycol 3350 17 GM Packet PER TUBE SCH (09:31)
[2022-05-24] MEDS: Nicotine 14 MG PATCH TOP SCH (14:45)
[2022-05-24 16:36] LABS: Vancomycin, Trough 17.9 ug/mL
[2022-05-24] MEDS: Atorvastatin Calcium 40 MG TAB PO SCH (21:05)
[2022-05-24] MEDS: Midazolam HCl 2 mg/2 ml Vial SLOW IVP PRN (23:51)
[2022-05-25] MEDS: Propofol 1,000 MG/100 ML VIAL IV PRN ×3 (02:33→20:31)
[2022-05-25] MEDS: Metoclopramide HCl 10 MG/2 ML VIAL IVP SCH ×4 (02:33→20:34)
[2022-05-25 04:56] LABS: #Basophils 0.1 thou/uL (0.0-0.2); #Eosinphils 0.4 thou/uL (0.0-0.7); #Lymphocytes 1.2 thou/uL (1.20-3.40); #Monocytes 0.7 thou/uL (0.11-0.59); #Neutrophils 10.9 thou/uL (1.40-6.50); %Basophils 0.5 % (0.0-1.0); %Eosinophils 2.8 % (0.0-10.0); %Lymphocytes 9.2 % (21.0-51.0); %Neutrophils 82.5 % (42.0-75.0); Hemoglobin 7.6 g/dL (14.0-18.0); Mean Corpuscular HGB CONC 27.7 g/dL (32.0-36.0); Mean Corpuscular Hemoglobin 19.7 pg (27.0-31.0); Mean Corpuscular Volume 71.2 fL (78.0-98.0); Mean Platelet Volume 8.1 fL (7.4-10.4); Platelet Count 537 thou/uL (130-400); RBC Distribution Width 16.3 % (11.5-14.5); Red Blood Cell (RBC) Count 3.83 mill/uL (4.70-6.10); White Blood Cell (WBC) Count 13.2 thou/uL (4.8-10.8)
[2022-05-25] MEDS: Piperacillin/Tazobactam 3.375 GM in Sodium Chloride 0.9% 100 ML IVPB SCH (04:59)
[2022-05-25 05:06] LABS: Anion Gap 11 mmol/L (10-20); BUN (Urea Nitrogen) 9 mg/dL (8.4-25.7); Calc. Creatinine Clearance 114 mL/min (70-130); Calcium 9.1 mg/dL (7.8-10.44); Carbon Dioxide 23 mmol/L (22-29); Chloride 107 mmol/L (98-107); Estimated GFR 104; Glucose 123 mg/dL (70-105); Potassium 3.9 mmol/L (3.5-5.1); Sodium 137 mmol/L (136-145)
[2022-05-25 07:24] LABS: Actual Bicarbonate (HCO3a) 22.9 mEq/L (22-28); Base Excess (BEa) -2.3 mEq/L (-2.0 to +3.0); Calcium, Ionized (arterial) 1.23 mmol/L (1.12-1.30); Carboxyhemoglobin (COHb) 0.9 gm% (0.0-3.0); Hemoglobin (Hb) 8.6 g/dL (14.0-18.0); O2 Tension (PaO2), arterial 93.3 mmHg (80.0-100.0); Potassium - ABG Lab 3.59 mmol/L (3.70-5.30); pH, Arterial 7.37 (7.35-7.45)
[2022-05-25 07:26] LABS: Puncture Site RRA
[2022-05-25] MEDS ORDERED: VANCOMYCIN 1.75 GM/500 ML BAG 1.75 GM in Premix Bag 1 BAG IVPB SCH (08:00)
[2022-05-25] MEDS: Polyethylene Glycol 3350 17 GM Packet PER TUBE SCH (09:21)
[2022-05-25] MEDS: Aspirin 325 MG TAB PER TUBE SCH (09:26)
[2022-05-25] MEDS: Lisinopril 5 MG TAB PER TUBE SCH (09:26)
[2022-05-25] MEDS: Enoxaparin Sodium 40 MG/0.4 ML SYRINGE SC SCH (09:27)
[2022-05-25] MEDS: Pantoprazole 40 MG VIAL IVP SCH (09:27)
[2022-05-25] MEDS: NOREPINEPHRINE 8 MG/250 ML-D5W 250 ML IVPB SCH (12:42)
[2022-05-25] MEDS: Nicotine 14 MG PATCH TOP SCH (13:31)
[2022-05-25] MEDS: Scopolamine 1.5 mg/72 hour Patch TD SCH ×2 (16:09→18:14)
[2022-05-25] MEDS: Atorvastatin Calcium 40 MG TAB PO SCH (20:32)
[2022-05-26] MEDS: NOREPINEPHRINE 8 MG/250 ML-D5W 250 ML IVPB SCH ×2 (02:25→20:22)
[2022-05-26] MEDS: Metoclopramide HCl 10 MG/2 ML VIAL IVP SCH ×4 (02:28→20:22)
[2022-05-26 05:15] LABS: #Basophils 0.1 thou/uL (0.0-0.2); #Eosinphils 0.5 thou/uL (0.0-0.7); #Lymphocytes 1.5 thou/uL (1.20-3.40); #Monocytes 0.7 thou/uL (0.11-0.59); #Neutrophils 10.3 thou/uL (1.40-6.50); %Basophils 0.5 % (0.0-1.0); %Eosinophils 4.1 % (0.0-10.0); %Lymphocytes 11.3 % (21.0-51.0); %Monocytes 5.3 % (0.0-10.0); %Neutrophils 78.7 % (42.0-75.0); Hemoglobin 7.6 g/dL (14.0-18.0); Mean Corpuscular HGB CONC 28.9 g/dL (32.0-36.0); Mean Corpuscular Hemoglobin 19.7 pg (27.0-31.0); Mean Corpuscular Volume 68.3 fL (78.0-98.0); Mean Platelet Volume 8.2 fL (7.4-10.4); Platelet Count 586 thou/uL (130-400); RBC Distribution Width 16.7 % (11.5-14.5); Red Blood Cell (RBC) Count 3.85 mill/uL (4.70-6.10); White Blood Cell (WBC) Count 13.1 thou/uL (4.8-10.8)
[2022-05-26 05:20] LABS: Anion Gap 13 mmol/L (10-20); BUN (Urea Nitrogen) 10 mg/dL (8.4-25.7); Calc. Creatinine Clearance 133 mL/min (70-130); Calcium 8.9 mg/dL (7.8-10.44); Carbon Dioxide 24 mmol/L (22-29); Chloride 106 mmol/L (98-107); Estimated GFR 109; Glucose 133 mg/dL (70-105); Potassium 3.9 mmol/L (3.5-5.1); Sodium 139 mmol/L (136-145)
[2022-05-26] MEDS ORDERED: Midazolam HCl 2 mg/2 ml Vial SLOW IVP SCH (06:00)
[2022-05-26] MEDS ORDERED: CEFAZOLIN 2 GM in Sodium Chloride 0.9% 100 ML IVPB SCH ×2 (06:00→11:30)
[2022-05-26] MEDS ORDERED: Lidocaine 2% 20 ml MDV SC SCH (06:00)
[2022-05-26] MEDS ORDERED: CEFAZOLIN 1 GM VIAL SLOW IVP SCH (06:00)
[2022-05-26 07:17] LABS: Actual Bicarbonate (HCO3a) 24.8 mEq/L (22-28); CO2 Tension 35.9 mmHg (35.0-45.0); Calcium, Ionized (arterial) 1.13 mmol/L (1.12-1.30); Carboxyhemoglobin (COHb) 1.3 gm% (0.0-3.0); Hemoglobin (Hb) 7.5 g/dL (14.0-18.0); O2 Tension (PaO2), arterial 102.5 mmHg (80.0-100.0); Potassium - ABG Lab 3.63 mmol/L (3.70-5.30); pH, Arterial 7.46 (7.35-7.45)
[2022-05-26 07:52] LABS: Puncture Site LRA
[2022-05-26 07:53] LABS: ALV-art Gradient 137.825 mmHg (0-20)
[2022-05-26] MEDS: Propofol 1,000 MG/100 ML VIAL IV PRN ×3 (09:45→17:25)
[2022-05-26] MEDS: Vecuronium 10 MG VIAL IVP SCH ×2 (09:45→11:20)
[2022-05-26] MEDS: Pantoprazole 40 MG VIAL IVP SCH (09:53)
[2022-05-26] MEDS: Lisinopril 5 MG TAB PER TUBE SCH (09:59)
[2022-05-26] MEDS: Aspirin 325 MG TAB PER TUBE SCH (09:59)
[2022-05-26] MEDS: Polyethylene Glycol 3350 17 GM Packet PER TUBE SCH (09:59)
[2022-05-26] MEDS: Fentanyl 100 MCG/2 ML VIAL SLOW IVP PRN ×2 (11:20→12:56)
[2022-05-26] MEDS: Midazolam HCl 2 mg/2 ml Vial SLOW IVP PRN ×3 (12:53→22:14)
[2022-05-26] MEDS: Nicotine 14 MG PATCH TOP SCH (13:46)
[2022-05-26] MEDS: Lactated Ringer's 1,000 ML IV SCH (15:39)
[2022-05-26] MEDS: Atorvastatin Calcium 40 MG TAB PO SCH (20:22)
[2022-05-27] MEDS: Midazolam HCl 2 mg/2 ml Vial SLOW IVP PRN (00:33)
[2022-05-27] MEDS: Propofol 1,000 MG/100 ML VIAL IV PRN ×3 (01:46→21:39)
[2022-05-27] MEDS: Metoclopramide HCl 10 MG/2 ML VIAL IVP SCH ×4 (02:59→21:39)
[2022-05-27] MEDS: Lactated Ringer's 1,000 ML IV SCH (02:59)
[2022-05-27 04:47] LABS: Anion Gap 12 mmol/L (10-20); BUN (Urea Nitrogen) 11 mg/dL (8.4-25.7); Calc. Creatinine Clearance 131 mL/min (70-130); Calcium 8.6 mg/dL (7.8-10.44); Carbon Dioxide 26 mmol/L (22-29); Chloride 105 mmol/L (98-107); Estimated GFR 108; Glucose 121 mg/dL (70-105); Potassium 3.7 mmol/L (3.5-5.1); Sodium 139 mmol/L (136-145)
[2022-05-27 04:50] LABS: #Basophils 0.1 thou/uL (0.0-0.2); #Eosinphils 0.4 thou/uL (0.0-0.7); #Lymphocytes 1.1 thou/uL (1.20-3.40); #Monocytes 0.6 thou/uL (0.11-0.59); #Neutrophils 6.9 thou/uL (1.40-6.50); %Basophils 1.5 % (0.0-1.0); %Eosinophils 4.6 % (0.0-10.0); %Lymphocytes 11.8 % (21.0-51.0); %Monocytes 6.9 % (0.0-10.0); %Neutrophils 75.2 % (42.0-75.0); Hemoglobin 7.1 g/dL (14.0-18.0); Mean Corpuscular Hemoglobin 19.7 pg (27.0-31.0); Mean Corpuscular Volume 67.7 fL (78.0-98.0); Mean Platelet Volume 8.3 fL (7.4-10.4); Platelet Count 575 thou/uL (130-400); RBC Distribution Width 16.5 % (11.5-14.5); Red Blood Cell (RBC) Count 3.61 mill/uL (4.70-6.10); White Blood Cell (WBC) Count 9.1 thou/uL (4.8-10.8)
[2022-05-27] MEDS: Lansoprazole 3 MG/ML ORAL SUSPENSION PER TUBE SCH (09:07)
[2022-05-27] MEDS: Aspirin 325 MG TAB PER TUBE SCH (09:07)
[2022-05-27] MEDS: Polyethylene Glycol 3350 17 GM Packet PER TUBE SCH (09:08)
[2022-05-27] MEDS: Enoxaparin Sodium 40 MG/0.4 ML SYRINGE SC SCH (09:08)
[2022-05-27] MEDS: Lisinopril 5 MG TAB PER TUBE SCH (09:08)
[2022-05-27] MEDS ORDERED: Sodium Chloride 0.9% 500 ML IV SCH (11:00)
[2022-05-27] MEDS ORDERED: Lactated Ringer's 500 ML IV SCH ×2 (11:00→19:00)
[2022-05-27] MEDS: Nicotine 14 MG PATCH TOP SCH (12:22)
[2022-05-27] MEDS: Atorvastatin Calcium 40 MG TAB PO SCH (21:38)
[2022-05-27] MEDS: cefTRIAXone\\ROCEPHIN 1 GM in Sodium Chloride 0.9% 100 ML IVPB SCH (21:38)
[2022-05-27] MEDS: Acetaminophen 650 MG/20.3 ML UDCUP PER TUBE PRN (22:30)
[2022-05-28] MEDS: NOREPINEPHRINE 8 MG/250 ML-D5W 250 ML IVPB SCH (00:42)
[2022-05-28] MEDS: Metoclopramide HCl 10 MG/2 ML VIAL IVP SCH ×4 (02:38→20:23)
[2022-05-28] MEDS: Propofol 1,000 MG/100 ML VIAL IV PRN (04:18)
[2022-05-28 05:00] LABS: #Basophils 0.1 thou/uL (0.0-0.2); #Eosinphils 0.2 thou/uL (0.0-0.7); #Lymphocytes 1.3 thou/uL (1.20-3.40); #Monocytes 0.7 thou/uL (0.11-0.59); #Neutrophils 6.5 thou/uL (1.40-6.50); %Basophils 1.3 % (0.0-1.0); %Eosinophils 2.5 % (0.0-10.0); %Monocytes 7.7 % (0.0-10.0); %Neutrophils 73.5 % (42.0-75.0); Hemoglobin 6.6 g/dL (14.0-18.0); Mean Corpuscular Hemoglobin 19.4 pg (27.0-31.0); Mean Corpuscular Volume 67.1 fL (78.0-98.0); Mean Platelet Volume 8.5 fL (7.4-10.4); Platelet Count 593 thou/uL (130-400); RBC Distribution Width 16.7 % (11.5-14.5); Red Blood Cell (RBC) Count 3.39 mill/uL (4.70-6.10); White Blood Cell (WBC) Count 8.9 thou/uL (4.8-10.8)
[2022-05-28 05:08] LABS: Anion Gap 10 mmol/L (10-20); BUN (Urea Nitrogen) 10 mg/dL (8.4-25.7); Calc. Creatinine Clearance 133 mL/min (70-130); Calcium 8.3 mg/dL (7.8-10.44); Carbon Dioxide 28 mmol/L (22-29); Chloride 103 mmol/L (98-107); Estimated GFR 109; Glucose 112 mg/dL (70-105); Potassium 3.2 mmol/L (3.5-5.1); Sodium 138 mmol/L (136-145)
[2022-05-28] MEDS: Potassium Chloride 20 MEQ in Premix Bag 1 BAG IVPB SCH ×2 (08:07→10:09)
[2022-05-28] MEDS: Aspirin 325 MG TAB PER TUBE SCH (08:07)
[2022-05-28] MEDS: Enoxaparin Sodium 40 MG/0.4 ML SYRINGE SC SCH (08:07)
[2022-05-28] MEDS: Lisinopril 5 MG TAB PER TUBE SCH (08:08)
[2022-05-28] MEDS: Polyethylene Glycol 3350 17 GM Packet PER TUBE SCH (08:08)
[2022-05-28] MEDS: Lansoprazole 3 MG/ML ORAL SUSPENSION PER TUBE SCH (08:10)
[2022-05-28] MEDS: Nicotine 14 MG PATCH TOP SCH (13:00)
[2022-05-28] MEDS: Midazolam HCl 2 mg/2 ml Vial SLOW IVP PRN (14:15)
[2022-05-28] MEDS ORDERED: Fentanyl CADD 100 ML IV SCH (15:00)
[2022-05-28] MEDS ORDERED: Fentanyl BOLUS 250 ML IVPB PRN (15:00)
[2022-05-28] MEDS ORDERED: Fentanyl CADD 100 ML ONE (16:18)
[2022-05-28 16:20] LABS: Potassium 3.7 mmol/L (3.5-5.1)
[2022-05-28] MEDS: Acetaminophen 650 MG/20.3 ML UDCUP PER TUBE PRN (16:57)
[2022-05-28] MEDS: Scopolamine 1.5 mg/72 hour Patch TD SCH (18:29)
[2022-05-28] MEDS: Atorvastatin Calcium 40 MG TAB PO SCH (20:23)
[2022-05-28] MEDS: cefTRIAXone\\ROCEPHIN 1 GM in Sodium Chloride 0.9% 100 ML IVPB SCH (20:23)
[2022-05-29] MEDS: Acetaminophen 650 MG/20.3 ML UDCUP PER TUBE PRN ×3 (00:30→17:33)
[2022-05-29] MEDS: Metoclopramide HCl 10 MG/2 ML VIAL IVP SCH ×4 (03:28→20:27)
[2022-05-29 04:46] LABS: #Basophils 0.1 thou/uL (0.0-0.2); #Eosinphils 0.1 thou/uL (0.0-0.7); #Monocytes 0.6 thou/uL (0.11-0.59); %Basophils 0.8 % (0.0-1.0); %Eosinophils 1.1 % (0.0-10.0); %Lymphocytes 9.9 % (21.0-51.0); %Monocytes 6.6 % (0.0-10.0); %Neutrophils 81.7 % (42.0-75.0); Hemoglobin 7.2 g/dL (14.0-18.0); Mean Corpuscular HGB CONC 29.5 g/dL (32.0-36.0); Mean Corpuscular Hemoglobin 20.7 pg (27.0-31.0); Mean Corpuscular Volume 70.3 fL (78.0-98.0); Mean Platelet Volume 7.6 fL (7.4-10.4); Platelet Count 594 thou/uL (130-400); RBC Distribution Width 18.1 % (11.5-14.5); Red Blood Cell (RBC) Count 3.45 mill/uL (4.70-6.10); White Blood Cell (WBC) Count 9.8 thou/uL (4.8-10.8)
[2022-05-29 05:23] LABS: Anion Gap 11 mmol/L (10-20); BUN (Urea Nitrogen) 16 mg/dL (8.4-25.7); Calc. Creatinine Clearance 0 mL/min (70-130); Calcium 8.1 mg/dL (7.8-10.44); Carbon Dioxide 27 mmol/L (22-29); Chloride 100 mmol/L (98-107); Estimated GFR 108; Glucose 113 mg/dL (70-105); Potassium 3.5 mmol/L (3.5-5.1); Sodium 134 mmol/L (136-145)
[2022-05-29] MEDS ORDERED: Potassium Bicarbonate/Cit Ac 20 MEQ TAB PER TUBE SCH (08:00)
[2022-05-29] MEDS: Lisinopril 5 MG TAB PER TUBE SCH (08:19)
[2022-05-29] MEDS: Lansoprazole 3 MG/ML ORAL SUSPENSION PER TUBE SCH (08:19)
[2022-05-29] MEDS: Polyethylene Glycol 3350 17 GM Packet PER TUBE SCH (08:19)
[2022-05-29] MEDS: Ondansetron PF 4 MG/2 ML Vial IVP PRN (10:53)
[2022-05-29] MEDS ORDERED: Piperacillin/Tazobactam 3.375 GM in Sodium Chloride 0.9% 100 ML IVPB SCH (11:45)
[2022-05-29] MEDS: Nicotine 14 MG PATCH TOP SCH (12:30)
[2022-05-29] MEDS: Vancomycin 1.5 GRAM/300 ML BAG 1.5 GM in Premix Bag 1 BAG IVPB SCH (13:57)
[2022-05-29] MEDS: Piperacillin/Tazobactam 3.375 GM in Sodium Chloride 0.9% 100 ML IVPB SCH (17:32)
[2022-05-29] MEDS: NOREPINEPHRINE 8 MG/250 ML-D5W 250 ML IVPB SCH (19:30)
[2022-05-29] MEDS: Atorvastatin Calcium 40 MG TAB PO SCH (20:27)
[2022-05-30] MEDS: Piperacillin/Tazobactam 3.375 GM in Sodium Chloride 0.9% 100 ML IVPB SCH ×2 (00:48→08:07)
[2022-05-30] MEDS: Vancomycin 1.5 GRAM/300 ML BAG 1.5 GM in Premix Bag 1 BAG IVPB SCH ×2 (00:50→11:30)
[2022-05-30] MEDS: Acetaminophen 650 MG/20.3 ML UDCUP PER TUBE PRN ×2 (00:55→19:13)
[2022-05-30] MEDS: Metoclopramide HCl 10 MG/2 ML VIAL IVP SCH ×4 (03:06→20:19)
[2022-05-30 05:04] LABS: #Eosinphils 0.3 thou/uL (0.0-0.7); #Lymphocytes 0.9 thou/uL (1.20-3.40); #Monocytes 0.4 thou/uL (0.11-0.59); #Neutrophils 5.9 thou/uL (1.40-6.50); %Basophils 0.4 % (0.0-1.0); %Lymphocytes 11.9 % (21.0-51.0); %Monocytes 5.5 % (0.0-10.0); %Neutrophils 78.2 % (42.0-75.0); Hemoglobin 6.8 g/dL (14.0-18.0); Mean Corpuscular HGB CONC 29.6 g/dL (32.0-36.0); Mean Corpuscular Hemoglobin 20.9 pg (27.0-31.0); Mean Corpuscular Volume 70.6 fL (78.0-98.0); Mean Platelet Volume 7.8 fL (7.4-10.4); Platelet Count 571 thou/uL (130-400); RBC Distribution Width 18.5 % (11.5-14.5); Red Blood Cell (RBC) Count 3.26 mill/uL (4.70-6.10); White Blood Cell (WBC) Count 7.5 thou/uL (4.8-10.8)
[2022-05-30 05:14] LABS: Anion Gap 10 mmol/L (10-20); BUN (Urea Nitrogen) 15 mg/dL (8.4-25.7); Calc. Creatinine Clearance 131 mL/min (70-130); Calcium 8.2 mg/dL (7.8-10.44); Carbon Dioxide 27 mmol/L (22-29); Chloride 102 mmol/L (98-107); Estimated GFR 108; Glucose 133 mg/dL (70-105); Potassium 3.4 mmol/L (3.5-5.1); Sodium 136 mmol/L (136-145)
[2022-05-30] MEDS: Potassium Chloride 20 MEQ in Premix Bag 1 BAG IVPB SCH ×2 (08:06→11:29)
[2022-05-30] MEDS: Lansoprazole 3 MG/ML ORAL SUSPENSION PER TUBE SCH (08:07)
[2022-05-30] MEDS: Lisinopril 5 MG TAB PER TUBE SCH (08:08)
[2022-05-30] MEDS: Polyethylene Glycol 3350 17 GM Packet PER TUBE SCH (08:08)
[2022-05-30] MEDS: Aspirin 325 MG TAB PER TUBE SCH (08:09)
[2022-05-30] MEDS: Enoxaparin Sodium 40 MG/0.4 ML SYRINGE SC SCH (08:09)
[2022-05-30] MEDS ORDERED: Morphine 4 MG/ML VIAL SLOW IVP PRN (08:22)
[2022-05-30] MEDS ORDERED: Midazolam HCl 2 mg/2 ml Vial SLOW IVP PRN (08:23)
[2022-05-30] MEDS: Nicotine 14 MG PATCH TOP SCH (11:30)
[2022-05-30] MEDS ORDERED: Meropenem 1 GM in Sodium Chloride 0.9% 100 ML IVPB SCH (16:00)
[2022-05-30] MEDS: Ondansetron PF 4 MG/2 ML Vial IVP PRN (19:14)
[2022-05-30] MEDS: Atorvastatin Calcium 40 MG TAB PO SCH (20:33)
[2022-05-30] MEDS: Meropenem 1 GM in Sodium Chloride 0.9% 100 ML IVPB SCH (23:26)
[2022-05-30 23:36] LABS: Vancomycin, Trough 13.2 ug/mL
[2022-05-31] MEDS: Vancomycin 1.5 GRAM/300 ML BAG 1.5 GM in Premix Bag 1 BAG IVPB SCH ×5 (00:22→23:58)
[2022-05-31] MEDS: Dexmedetomidine 1,000 MCG in Sodium Chloride 0.9% 250 ML 240 ML IVPB SCH ×3 (01:41→19:08)
[2022-05-31] MEDS: Metoclopramide HCl 10 MG/2 ML VIAL IVP SCH ×4 (03:00→20:32)
[2022-05-31 04:04] LABS: #Eosinphils 0.5 thou/uL (0.0-0.7); #Monocytes 0.3 thou/uL (0.11-0.59); #Neutrophils 6.2 thou/uL (1.40-6.50); %Basophils 0.5 % (0.0-1.0); %Lymphocytes 12.4 % (21.0-51.0); %Monocytes 3.8 % (0.0-10.0); %Neutrophils 77.3 % (42.0-75.0); Hemoglobin 8.3 g/dL (14.0-18.0); Mean Corpuscular Hemoglobin 21.5 pg (27.0-31.0); Mean Corpuscular Volume 71.6 fL (78.0-98.0); Mean Platelet Volume 7.7 fL (7.4-10.4); Platelet Count 597 thou/uL (130-400); RBC Distribution Width 18.7 % (11.5-14.5); Red Blood Cell (RBC) Count 3.87 mill/uL (4.70-6.10)
[2022-05-31 04:13] LABS: Anion Gap 9 mmol/L (10-20); BUN (Urea Nitrogen) 10 mg/dL (8.4-25.7); Calc. Creatinine Clearance 136 mL/min (70-130); Calcium 8.3 mg/dL (7.8-10.44); Carbon Dioxide 28 mmol/L (22-29); Chloride 103 mmol/L (98-107); Estimated GFR 110; Glucose 137 mg/dL (70-105); Potassium 3.6 mmol/L (3.5-5.1); Sodium 136 mmol/L (136-145)
[2022-05-31] MEDS: Meropenem 1 GM in Sodium Chloride 0.9% 100 ML IVPB SCH ×3 (08:59→23:59)
[2022-05-31] MEDS: Lisinopril 5 MG TAB PER TUBE SCH (09:59)
[2022-05-31] MEDS: Enoxaparin Sodium 40 MG/0.4 ML SYRINGE SC SCH (10:00)
[2022-05-31] MEDS: Polyethylene Glycol 3350 17 GM Packet PER TUBE SCH (10:00)
[2022-05-31] MEDS: Aspirin 325 MG TAB PER TUBE SCH (10:00)
[2022-05-31] MEDS: Lansoprazole 3 MG/ML ORAL SUSPENSION PER TUBE SCH (10:07)
[2022-05-31] MEDS: Nicotine 14 MG PATCH TOP SCH (14:30)
[2022-05-31] MEDS: Acetaminophen 650 MG/20.3 ML UDCUP PER TUBE PRN (14:31)
[2022-05-31] MEDS: Scopolamine 1.5 mg/72 hour Patch TD SCH (19:03)
[2022-05-31] MEDS: Atorvastatin Calcium 40 MG TAB PO SCH (20:32)
[2022-06-01] MEDS: Metoclopramide HCl 10 MG/2 ML VIAL IVP SCH ×4 (03:00→21:59)
[2022-06-01 04:32] LABS: Anion Gap 12 mmol/L (10-20); BUN (Urea Nitrogen) 14 mg/dL (8.4-25.7); Carbon Dioxide 26 mmol/L (22-29); Chloride 103 mmol/L (98-107); Potassium 3.8 mmol/L (3.5-5.1); Sodium 137 mmol/L (136-145)
[2022-06-01 04:33] LABS: Calc. Creatinine Clearance 129 mL/min (70-130); Calcium 8.3 mg/dL (7.8-10.44); Estimated GFR 108; Glucose 133 mg/dL (70-105)
[2022-06-01 06:14] LABS: #Basophils 0.1 thou/uL (0.0-0.2); #Eosinphils 0.5 thou/uL (0.0-0.7); #Lymphocytes 0.9 thou/uL (1.20-3.40); #Monocytes 0.4 thou/uL (0.11-0.59); #Neutrophils 6.1 thou/uL (1.40-6.50); %Basophils 0.7 % (0.0-1.0); %Eosinophils 5.7 % (0.0-10.0); %Lymphocytes 11.7 % (21.0-51.0); %Monocytes 5.1 % (0.0-10.0); %Neutrophils 76.8 % (42.0-75.0); Anisocytosis SLIGHT = 6-15 cells (100X) (0-5/hpf); Elliptocytes SLIGHT = 2-5 cells (100X) (0-1/hpf); Hemoglobin 8.8 g/dL (14.0-18.0); MDiff Complete? YES; Mean Corpuscular HGB CONC 30.4 g/dL (32.0-36.0); Mean Corpuscular Hemoglobin 22.1 pg (27.0-31.0); Mean Corpuscular Volume 72.9 fL (78.0-98.0); Mean Platelet Volume 7.8 fL (7.4-10.4); Platelet Count 645 thou/uL (130-400); RBC Distribution Width 19.1 % (11.5-14.5); Red Blood Cell (RBC) Count 3.99 mill/uL (4.70-6.10); White Blood Cell (WBC) Count 7.9 thou/uL (4.8-10.8)
[2022-06-01] MEDS: Dexmedetomidine 1,000 MCG in Sodium Chloride 0.9% 250 ML 240 ML IVPB SCH ×2 (06:50→16:09)
[2022-06-01 06:52] LABS: Actual Bicarbonate (HCO3a) 26.2 mEq/L (22-28); Base Excess (BEa) 2.4 mEq/L (-2.0 to +3.0); CO2 Tension 37.3 mmHg (35.0-45.0); Calcium, Ionized (arterial) 1.13 mmol/L (1.12-1.30); Carboxyhemoglobin (COHb) 0.8 gm% (0.0-3.0); Hemoglobin (Hb) 9.2 g/dL (14.0-18.0); O2 Tension (PaO2), arterial 89.3 mmHg (80.0-100.0); Potassium - ABG Lab 3.73 mmol/L (3.70-5.30); pH, Arterial 7.46 (7.35-7.45)
[2022-06-01 06:53] LABS: Puncture Site RRA
[2022-06-01 06:54] LABS: ALV-art Gradient 149.275 mmHg (0-20)
[2022-06-01] MEDS: Meropenem 1 GM in Sodium Chloride 0.9% 100 ML IVPB SCH ×2 (08:50→15:30)
[2022-06-01] MEDS: Aspirin 325 MG TAB PER TUBE SCH (09:57)
[2022-06-01] MEDS: Polyethylene Glycol 3350 17 GM Packet PER TUBE SCH (09:57)
[2022-06-01] MEDS: Enoxaparin Sodium 40 MG/0.4 ML SYRINGE SC SCH (09:57)
[2022-06-01] MEDS: Lansoprazole 3 MG/ML ORAL SUSPENSION PER TUBE SCH (10:00)
[2022-06-01 11:17] LABS: Vancomycin, Trough 16.2 ug/mL
[2022-06-01 12:04] LABS: ALT (SGPT) 47 U/L (8-55); AST (SGOT) 28 U/L (5-34); Alkaline Phosphatase 96 U/L (40-110); Bilirubin, Direct 0.1 mg/dL (0.1-0.3); Bilirubin, Total 0.2 mg/dL (0.2-1.2); Protein, Total 6.4 g/dL (6.0-8.3)
[2022-06-01] MEDS: guaiFENesin 200 MG TAB PO PRN (12:13)
[2022-06-01] MEDS: Ondansetron PF 4 MG/2 ML Vial IVP PRN (12:13)
[2022-06-01] MEDS: Vancomycin 1.5 GRAM/300 ML BAG 1.5 GM in Premix Bag 1 BAG IVPB SCH ×2 (12:18→23:43)
[2022-06-01] MEDS: Nicotine 14 MG PATCH TOP SCH (12:23)
[2022-06-01] MEDS: Atorvastatin Calcium 40 MG TAB PO SCH (21:59)
[2022-06-02] MEDS: Dexmedetomidine 1,000 MCG in Sodium Chloride 0.9% 250 ML 240 ML IVPB SCH ×3 (01:53→23:25)
[2022-06-02] MEDS: Meropenem 1 GM in Sodium Chloride 0.9% 100 ML IVPB SCH ×3 (01:58→15:29)
[2022-06-02 04:20] LABS: Hemoglobin 8.6 g/dL (14.0-18.0); Mean Corpuscular HGB CONC 29.1 g/dL (32.0-36.0); Mean Corpuscular Hemoglobin 21.2 pg (27.0-31.0); Mean Corpuscular Volume 72.7 fL (78.0-98.0); Mean Platelet Volume 7.9 fL (7.4-10.4); Platelet Count 722 thou/uL (130-400); RBC Distribution Width 19.4 % (11.5-14.5); Red Blood Cell (RBC) Count 4.07 mill/uL (4.70-6.10); White Blood Cell (WBC) Count 7.7 thou/uL (4.8-10.8)
[2022-06-02 04:24] LABS: Anion Gap 11 mmol/L (10-20); BUN (Urea Nitrogen) 14 mg/dL (8.4-25.7); Calc. Creatinine Clearance 130 mL/min (70-130); Calcium 8.6 mg/dL (7.8-10.44); Carbon Dioxide 28 mmol/L (22-29); Chloride 101 mmol/L (98-107); Estimated GFR 108; Glucose 126 mg/dL (70-105); Sodium 136 mmol/L (136-145)
[2022-06-02 04:28] LABS: ALT (SGPT) 56 U/L (8-55); AST (SGOT) 48 U/L (5-34); Albumin 3.1 g/dL (3.5-5.0); Alkaline Phosphatase 102 U/L (40-110); Bilirubin, Direct 0.1 mg/dL (0.1-0.3); Bilirubin, Total 0.3 mg/dL (0.2-1.2); Protein, Total 6.4 g/dL (6.0-8.3)
[2022-06-02 04:54] LABS: #Basophils 0.1 thou/uL (0.0-0.2); #Eosinphils 0.5 thou/uL (0.0-0.7); #Lymphocytes 1.3 thou/uL (1.20-3.40); #Monocytes 0.5 thou/uL (0.11-0.59); #Neutrophils 5.3 thou/uL (1.40-6.50); %Basophils 0.9 % (0.0-1.0); %Eosinophils 6.9 % (0.0-10.0); %Lymphocytes 17.3 % (21.0-51.0); %Monocytes 6.8 % (0.0-10.0); %Neutrophils 68.3 % (42.0-75.0); Anisocytosis SLIGHT = 6-15 cells (100X) (0-5/hpf); Elliptocytes SLIGHT = 2-5 cells (100X) (0-1/hpf); Hypochromia SLIGHT = 6-15 cells (100X) (0-5/hpf); MDiff Complete? YES; Microcytosis SLIGHT = 6-15 cells (100X) (0-5/hpf); Platelet Morphology Comment Appears Increased
[2022-06-02] MEDS: Metoclopramide HCl 10 MG/2 ML VIAL IVP SCH ×4 (05:43→21:19)
[2022-06-02] MEDS: Enoxaparin Sodium 40 MG/0.4 ML SYRINGE SC SCH (10:10)
[2022-06-02] MEDS: Polyethylene Glycol 3350 17 GM Packet PER TUBE SCH (10:10)
[2022-06-02] MEDS: Aspirin 325 MG TAB PER TUBE SCH (10:10)
[2022-06-02] MEDS: Lansoprazole 3 MG/ML ORAL SUSPENSION PER TUBE SCH (10:15)
[2022-06-02] MEDS: Nicotine 14 MG PATCH TOP SCH (13:11)
[2022-06-02] MEDS: Vancomycin 1.5 GRAM/300 ML BAG 1.5 GM in Premix Bag 1 BAG IVPB SCH (13:11)
[2022-06-02] MEDS: Acetaminophen 650 MG/20.3 ML UDCUP PER TUBE PRN (20:48)
[2022-06-02] MEDS: Atorvastatin Calcium 40 MG TAB PO SCH (20:52)
[2022-06-02 23:58] LABS: Vancomycin, Trough 18.5 ug/mL
[2022-06-03] MEDS: Vancomycin 1.5 GRAM/300 ML BAG 1.5 GM in Premix Bag 1 BAG IVPB SCH ×2 (00:38→13:08)
[2022-06-03] MEDS: Meropenem 1 GM in Sodium Chloride 0.9% 100 ML IVPB SCH ×3 (00:39→17:24)
[2022-06-03] MEDS: Metoclopramide HCl 10 MG/2 ML VIAL IVP SCH ×4 (03:13→21:49)
[2022-06-03 04:20] LABS: #Basophils 0.1 thou/uL (0.0-0.2); #Eosinphils 0.3 thou/uL (0.0-0.7); #Lymphocytes 1.4 thou/uL (1.20-3.40); #Monocytes 0.5 thou/uL (0.11-0.59); #Neutrophils 5.4 thou/uL (1.40-6.50); %Eosinophils 4.3 % (0.0-10.0); %Lymphocytes 18.2 % (21.0-51.0); %Neutrophils 70.6 % (42.0-75.0); Mean Corpuscular HGB CONC 29.3 g/dL (32.0-36.0); Mean Corpuscular Hemoglobin 21.2 pg (27.0-31.0); Mean Corpuscular Volume 72.5 fL (78.0-98.0); Mean Platelet Volume 8.5 fL (7.4-10.4); Platelet Count 801 thou/uL (130-400); RBC Distribution Width 19.5 % (11.5-14.5); Red Blood Cell (RBC) Count 4.21 mill/uL (4.70-6.10); White Blood Cell (WBC) Count 7.6 thou/uL (4.8-10.8)
[2022-06-03 04:35] LABS: ALT (SGPT) 63 U/L (8-55); AST (SGOT) 43 U/L (5-34); Albumin 3.3 g/dL (3.5-5.0); Alkaline Phosphatase 118 U/L (40-110); Bilirubin, Direct 0.1 mg/dL (0.1-0.3); Bilirubin, Total 0.3 mg/dL (0.2-1.2); Protein, Total 7.1 g/dL (6.0-8.3)
[2022-06-03 04:36] LABS: Anion Gap 15 mmol/L (10-20); BUN (Urea Nitrogen) 15 mg/dL (8.4-25.7); Calc. Creatinine Clearance 129 mL/min (70-130); Calcium 8.8 mg/dL (7.8-10.44); Carbon Dioxide 24 mmol/L (22-29); Chloride 102 mmol/L (98-107); Estimated GFR 109; Glucose 99 mg/dL (70-105); Magnesium 2.1 mg/dL (1.6-2.6); Sodium 137 mmol/L (136-145)
[2022-06-03] MEDS: Acetaminophen 650 MG/20.3 ML UDCUP PER TUBE PRN (04:48)
[2022-06-03] MEDS: Enoxaparin Sodium 40 MG/0.4 ML SYRINGE SC SCH (10:10)
[2022-06-03] MEDS: Aspirin 325 MG TAB PER TUBE SCH (10:10)
[2022-06-03] MEDS: Polyethylene Glycol 3350 17 GM Packet PER TUBE SCH (10:11)
[2022-06-03] MEDS: Lansoprazole 3 MG/ML ORAL SUSPENSION PER TUBE SCH (11:05)
[2022-06-03] MEDS: Nicotine 14 MG PATCH TOP SCH (13:08)
[2022-06-03] MEDS: Dexmedetomidine 1,000 MCG in Sodium Chloride 0.9% 250 ML 240 ML IVPB SCH (14:37)
[2022-06-03] MEDS: Scopolamine 1.5 mg/72 hour Patch TD SCH (17:27)
[2022-06-03] MEDS: Atorvastatin Calcium 40 MG TAB PO SCH (21:49)
[2022-06-03] MEDS: valACYclovir 500 MG TAB PO SCH (21:49)
[2022-06-04] MEDS: Meropenem 1 GM in Sodium Chloride 0.9% 100 ML IVPB SCH ×4 (00:29→23:14)
[2022-06-04] MEDS: Vancomycin 1.5 GRAM/300 ML BAG 1.5 GM in Premix Bag 1 BAG IVPB SCH (00:52)
[2022-06-04] MEDS: Metoclopramide HCl 10 MG/2 ML VIAL IVP SCH ×2 (03:15→08:58)
[2022-06-04 04:27] LABS: Anion Gap 11 mmol/L (10-20); BUN (Urea Nitrogen) 15 mg/dL (8.4-25.7); Calc. Creatinine Clearance 129 mL/min (70-130); Calcium 8.4 mg/dL (7.8-10.44); Carbon Dioxide 27 mmol/L (22-29); Chloride 103 mmol/L (98-107); Estimated GFR 109; Glucose 114 mg/dL (70-105); Potassium 4.1 mmol/L (3.5-5.1); Sodium 137 mmol/L (136-145)
[2022-06-04 04:46] LABS: #Basophils 0.1 thou/uL (0.0-0.2); #Eosinphils 0.3 thou/uL (0.0-0.7); #Lymphocytes 1.2 thou/uL (1.20-3.40); #Monocytes 0.5 thou/uL (0.11-0.59); #Neutrophils 6.5 thou/uL (1.40-6.50); %Eosinophils 3.5 % (0.0-10.0); %Lymphocytes 14.1 % (21.0-51.0); %Monocytes 5.4 % (0.0-10.0); Anisocytosis SLIGHT = 6-15 cells (100X) (0-5/hpf); Elliptocytes SLIGHT = 2-5 cells (100X) (0-1/hpf); Hemoglobin 8.5 g/dL (14.0-18.0); Hypochromia SLIGHT = 6-15 cells (100X) (0-5/hpf); MDiff Complete? YES; Mean Corpuscular HGB CONC 29.2 g/dL (32.0-36.0); Mean Corpuscular Hemoglobin 21.3 pg (27.0-31.0); Mean Platelet Volume 8.1 fL (7.4-10.4); Microcytosis SLIGHT = 6-15 cells (100X) (0-5/hpf); Platelet Count 815 thou/uL (130-400); Platelet Morphology Comment Appears Increased; Red Blood Cell (RBC) Count 4.01 mill/uL (4.70-6.10); White Blood Cell (WBC) Count 8.6 thou/uL (4.8-10.8)
[2022-06-04] MEDS: Lansoprazole 3 MG/ML ORAL SUSPENSION PER TUBE SCH (08:58)
[2022-06-04] MEDS: Polyethylene Glycol 3350 17 GM Packet PER TUBE SCH (08:58)
[2022-06-04] MEDS: Dexmedetomidine 1,000 MCG in Sodium Chloride 0.9% 250 ML 240 ML IVPB SCH (08:58)
[2022-06-04] MEDS: Aspirin 325 MG TAB PER TUBE SCH (09:01)
[2022-06-04] MEDS: Enoxaparin Sodium 40 MG/0.4 ML SYRINGE SC SCH (09:01)
[2022-06-04] MEDS: valACYclovir 500 MG TAB PO SCH ×2 (09:11→20:12)
[2022-06-04] MEDS ORDERED: Morphine 2 MG/ML VIAL SLOW IVP PRN (10:06)
[2022-06-04] MEDS: Metoclopramide 10 MG/10 ML UDCUP PER TUBE SCH ×3 (12:35→23:14)
[2022-06-04] MEDS: Nicotine 14 MG PATCH TOP SCH (12:50)
[2022-06-04] MEDS: Acetaminophen 650 MG/20.3 ML UDCUP PER TUBE PRN (14:22)
[2022-06-04] MEDS ORDERED: cloNIDine 0.3 MG TAB PER TUBE SCH (17:30)
[2022-06-04] MEDS: Lorazepam 1 MG TAB PO PRN (20:12)
[2022-06-04] MEDS: Atorvastatin Calcium 40 MG TAB PO SCH (20:12)
[2022-06-05] MEDS: Lorazepam 1 MG TAB PO PRN (00:24)
[2022-06-05] MEDS: Dexmedetomidine 1,000 MCG in Sodium Chloride 0.9% 250 ML 240 ML IVPB SCH (01:30)
[2022-06-05] MEDS: Metoclopramide 10 MG/10 ML UDCUP PER TUBE SCH ×2 (06:30→20:23)
[2022-06-05 06:53] LABS: #Basophils 0.1 thou/uL (0.0-0.2); #Eosinphils 0.2 thou/uL (0.0-0.7); #Lymphocytes 1.4 thou/uL (1.20-3.40); #Monocytes 0.6 thou/uL (0.11-0.59); %Basophils 1.5 % (0.0-1.0); %Eosinophils 2.1 % (0.0-10.0); %Lymphocytes 14.7 % (21.0-51.0); %Monocytes 6.4 % (0.0-10.0); %Neutrophils 75.2 % (42.0-75.0); Hemoglobin 9.3 g/dL (14.0-18.0); Mean Corpuscular HGB CONC 29.2 g/dL (32.0-36.0); Mean Corpuscular Hemoglobin 21.7 pg (27.0-31.0); Mean Corpuscular Volume 74.2 fL (78.0-98.0); Mean Platelet Volume 7.7 fL (7.4-10.4); Platelet Count 899 thou/uL (130-400); RBC Distribution Width 20.4 % (11.5-14.5); Red Blood Cell (RBC) Count 4.29 mill/uL (4.70-6.10); White Blood Cell (WBC) Count 9.3 thou/uL (4.8-10.8)
[2022-06-05 06:59] LABS: ALT (SGPT) 54 U/L (8-55); AST (SGOT) 32 U/L (5-34); Albumin 3.4 g/dL (3.5-5.0); Alkaline Phosphatase 119 U/L (40-110); Anion Gap 13 mmol/L (10-20); BUN (Urea Nitrogen) 20 mg/dL (8.4-25.7); Bilirubin, Total 0.4 mg/dL (0.2-1.2); Calc. Creatinine Clearance 111 mL/min (70-130); Calcium 8.6 mg/dL (7.8-10.44); Carbon Dioxide 26 mmol/L (22-29); Chloride 103 mmol/L (98-107); Estimated GFR 105; Globulin 3.8 g/dL (2.4-3.5); Glucose 116 mg/dL (70-105); Potassium 4.1 mmol/L (3.5-5.1); Protein, Total 7.2 g/dL (6.0-8.3); Sodium 138 mmol/L (136-145)
[2022-06-05 07:20] LABS: HBSAg Index 0.29 S/CO (0-0.99); Hep A IgM AB Non-Reactive (NonReactive); Hep A IgM S/CO 0.25 S/CO (0-0.79); Hep B Surf Ag Non-Reactive S/CO (NonReactive); Hep C IgG Ab Non-Reactive (NonReactive); Hep C Index 0.14 S/CO (0-0.79); Hepatitis B Core IgM Abs Non-Reactive (NonReactive)
[2022-06-05] MEDS: Meropenem 1 GM in Sodium Chloride 0.9% 100 ML IVPB SCH ×2 (10:40→15:57)
[2022-06-05] MEDS: cloNIDine 0.3 MG TAB PER TUBE SCH ×3 (10:40→21:13)
[2022-06-05] MEDS: Lansoprazole 3 MG/ML ORAL SUSPENSION PER TUBE SCH (10:40)
[2022-06-05] MEDS: valACYclovir 500 MG TAB PO SCH ×2 (10:41→21:13)
[2022-06-05] MEDS: Aspirin 325 MG TAB PER TUBE SCH (10:41)
[2022-06-05] MEDS: Enoxaparin Sodium 40 MG/0.4 ML SYRINGE SC SCH (10:41)
[2022-06-05] MEDS: Polyethylene Glycol 3350 17 GM Packet PER TUBE SCH (10:42)
[2022-06-05] MEDS ORDERED: Sodium Bicarbonate Tab 325 MG TAB PER TUBE PRN (12:00)
[2022-06-05] MEDS ORDERED: Pancrelipase DR 12,000 1 CAP FS PRN (12:00)
[2022-06-05] MEDS ORDERED: Senokot S 8.6-50 MG TAB PER TUBE PRN (13:39)
[2022-06-05] MEDS: Nicotine 14 MG PATCH TOP SCH (15:59)
[2022-06-05] MEDS: Atorvastatin Calcium 40 MG TAB PO SCH (21:13)
[2022-06-06] MEDS: Meropenem 1 GM in Sodium Chloride 0.9% 100 ML IVPB SCH ×3 (00:43→16:30)
[2022-06-06] MEDS: Acetaminophen 650 MG/20.3 ML UDCUP PER TUBE PRN (03:09)
[2022-06-06 04:11] LABS: ALT (SGPT) 50 U/L (8-55); AST (SGOT) 27 U/L (5-34); Albumin 3.3 g/dL (3.5-5.0); Alkaline Phosphatase 119 U/L (40-110); Anion Gap 12 mmol/L (10-20); BUN (Urea Nitrogen) 24 mg/dL (8.4-25.7); Bilirubin, Total 0.4 mg/dL (0.2-1.2); Calc. Creatinine Clearance 114 mL/min (70-130); Calcium 8.7 mg/dL (7.8-10.44); Carbon Dioxide 27 mmol/L (22-29); Chloride 104 mmol/L (98-107); Estimated GFR 105; Globulin 3.7 g/dL (2.4-3.5); Glucose 113 mg/dL (70-105); Potassium 4.2 mmol/L (3.5-5.1); Sodium 139 mmol/L (136-145)
[2022-06-06 04:13] LABS: #Basophils 0.2 thou/uL (0.0-0.2); #Eosinphils 0.3 thou/uL (0.0-0.7); #Lymphocytes 1.5 thou/uL (1.20-3.40); #Monocytes 0.6 thou/uL (0.11-0.59); %Basophils 2.1 % (0.0-1.0); %Eosinophils 4.1 % (0.0-10.0); %Lymphocytes 17.3 % (21.0-51.0); %Monocytes 6.8 % (0.0-10.0); %Neutrophils 69.8 % (42.0-75.0); Hemoglobin 8.7 g/dL (14.0-18.0); Mean Corpuscular HGB CONC 29.5 g/dL (32.0-36.0); Mean Corpuscular Hemoglobin 21.5 pg (27.0-31.0); Mean Platelet Volume 8.5 fL (7.4-10.4); Platelet Count 853 thou/uL (130-400); RBC Distribution Width 20.3 % (11.5-14.5); Red Blood Cell (RBC) Count 4.06 mill/uL (4.70-6.10); White Blood Cell (WBC) Count 8.6 thou/uL (4.8-10.8)
[2022-06-06] MEDS: cloNIDine 0.3 MG TAB PER TUBE SCH ×3 (09:27→21:41)
[2022-06-06] MEDS: Aspirin 325 MG TAB PER TUBE SCH (09:27)
[2022-06-06] MEDS: Enoxaparin Sodium 40 MG/0.4 ML SYRINGE SC SCH (09:33)
[2022-06-06] MEDS: valACYclovir 500 MG TAB PO SCH ×2 (09:35→21:46)
[2022-06-06] MEDS: Lansoprazole 3 MG/ML ORAL SUSPENSION PER TUBE SCH (09:35)
[2022-06-06] MEDS: Nicotine 14 MG PATCH TOP SCH (16:30)
[2022-06-06] MEDS: Lorazepam 1 MG TAB PO PRN (21:46)
[2022-06-06] MEDS: Atorvastatin Calcium 40 MG TAB PO SCH (21:46)
[2022-06-07] MEDS ORDERED: Hydrocortisone 1% Cream 30 GM TUBE TOP SCH (01:30)
[2022-06-07 07:19] LABS: #Basophils 0.2 thou/uL (0.0-0.2); #Eosinphils 0.2 thou/uL (0.0-0.7); #Lymphocytes 1.3 thou/uL (1.20-3.40); #Monocytes 0.5 thou/uL (0.11-0.59); #Neutrophils 6.3 thou/uL (1.40-6.50); %Eosinophils 2.9 % (0.0-10.0); %Lymphocytes 15.5 % (21.0-51.0); %Monocytes 6.1 % (0.0-10.0); %Neutrophils 73.6 % (42.0-75.0); Mean Corpuscular HGB CONC 29.8 g/dL (32.0-36.0); Mean Corpuscular Hemoglobin 21.6 pg (27.0-31.0); Mean Corpuscular Volume 72.6 fL (78.0-98.0); Mean Platelet Volume 8.2 fL (7.4-10.4); Platelet Count 895 thou/uL (130-400); Red Blood Cell (RBC) Count 4.63 mill/uL (4.70-6.10); White Blood Cell (WBC) Count 8.6 thou/uL (4.8-10.8)
[2022-06-07 07:41] LABS: ALT (SGPT) 39 U/L (8-55); AST (SGOT) 20 U/L (5-34); Albumin 3.7 g/dL (3.5-5.0); Alkaline Phosphatase 136 U/L (40-110); Anion Gap 12 mmol/L (10-20); BUN (Urea Nitrogen) 23 mg/dL (8.4-25.7); Bilirubin, Total 0.4 mg/dL (0.2-1.2); Calc. Creatinine Clearance 114 mL/min (70-130); Calcium 9.1 mg/dL (7.8-10.44); Carbon Dioxide 27 mmol/L (22-29); Chloride 102 mmol/L (98-107); Estimated GFR 106; Globulin 4.1 g/dL (2.4-3.5); Glucose 109 mg/dL (70-105); Protein, Total 7.8 g/dL (6.0-8.3); Sodium 137 mmol/L (136-145)
[2022-06-07] MEDS: Lansoprazole 3 MG/ML ORAL SUSPENSION PER TUBE SCH (10:54)
[2022-06-07] MEDS: Enoxaparin Sodium 40 MG/0.4 ML SYRINGE SC SCH (10:54)
[2022-06-07] MEDS: valACYclovir 500 MG TAB PO SCH ×2 (10:54→20:31)
[2022-06-07] MEDS: Aspirin 325 MG TAB PER TUBE SCH (10:54)
[2022-06-07] MEDS: cloNIDine 0.3 MG TAB PER TUBE SCH (11:11)
[2022-06-07] MEDS: Nicotine 14 MG PATCH TOP SCH (13:42)
[2022-06-07] MEDS: cloNIDine 0.1 MG TAB PER TUBE SCH (20:31)
[2022-06-07] MEDS: Atorvastatin Calcium 40 MG TAB PO SCH (20:31)
[2022-06-08 03:51] LABS: #Basophils 0.1 thou/uL (0.0-0.2); #Eosinphils 0.2 thou/uL (0.0-0.7); #Lymphocytes 1.3 thou/uL (1.20-3.40); #Monocytes 0.4 thou/uL (0.11-0.59); #Neutrophils 5.2 thou/uL (1.40-6.50); %Eosinophils 3.2 % (0.0-10.0); %Lymphocytes 17.5 % (21.0-51.0); %Neutrophils 71.3 % (42.0-75.0); Hemoglobin 10.9 g/dL (14.0-18.0); Mean Corpuscular HGB CONC 29.5 g/dL (32.0-36.0); Mean Corpuscular Hemoglobin 21.8 pg (27.0-31.0); Mean Corpuscular Volume 73.9 fL (78.0-98.0); Mean Platelet Volume 9.1 fL (7.4-10.4); Platelet Count 828 thou/uL (130-400); RBC Distribution Width 20.3 % (11.5-14.5); Red Blood Cell (RBC) Count 4.99 mill/uL (4.70-6.10); White Blood Cell (WBC) Count 7.3 thou/uL (4.8-10.8)
[2022-06-08] MEDS ORDERED: Metoclopramide HCl 10 MG/2 ML VIAL IVP SCH (04:00)
[2022-06-08 04:18] LABS: ALT (SGPT) 36 U/L (8-55); AST (SGOT) 28 U/L (5-34); Albumin 3.7 g/dL (3.5-5.0); Alkaline Phosphatase 137 U/L (40-110); Anion Gap 16 mmol/L (10-20); BUN (Urea Nitrogen) 26 mg/dL (8.4-25.7); Bilirubin, Total 0.5 mg/dL (0.2-1.2); Calc. Creatinine Clearance 106 mL/min (70-130); Calcium 9.1 mg/dL (7.8-10.44); Carbon Dioxide 22 mmol/L (22-29); Chloride 105 mmol/L (98-107); Estimated GFR 103; Globulin 4.5 g/dL (2.4-3.5); Glucose 107 mg/dL (70-105); Potassium 4.9 mmol/L (3.5-5.1); Protein, Total 8.2 g/dL (6.0-8.3); Sodium 138 mmol/L (136-145)
[2022-06-08] MEDS: valACYclovir 500 MG TAB PO SCH ×2 (09:18→21:24)
[2022-06-08] MEDS: Enoxaparin Sodium 40 MG/0.4 ML SYRINGE SC SCH (09:18)
[2022-06-08] MEDS: Aspirin 325 MG TAB PER TUBE SCH (09:18)
[2022-06-08] MEDS: cloNIDine 0.1 MG TAB PER TUBE SCH ×2 (09:18→21:50)
[2022-06-08] MEDS: Lansoprazole 3 MG/ML ORAL SUSPENSION PER TUBE SCH (10:26)
[2022-06-08] MEDS: Nicotine 14 MG PATCH TOP SCH (11:51)
[2022-06-08] MEDS: guaiFENesin 200 MG TAB PO PRN (21:24)
[2022-06-08] MEDS: Atorvastatin Calcium 40 MG TAB PO SCH (21:25)
[2022-06-08] MEDS: Acetaminophen 650 MG/20.3 ML UDCUP PER TUBE PRN (21:49)
[2022-06-08 22:36] LABS: HSV 1 - DNA Negative (Negative); HSV 2 - DNA Negative (Negative)
[2022-06-09] MEDS: cloNIDine 0.1 MG TAB PER TUBE SCH ×2 (10:31→21:25)
[2022-06-09] MEDS: Enoxaparin Sodium 40 MG/0.4 ML SYRINGE SC SCH (10:32)
[2022-06-09] MEDS: valACYclovir 500 MG TAB PO SCH ×2 (10:32→21:24)
[2022-06-09] MEDS: Aspirin 325 MG TAB PER TUBE SCH (10:32)
[2022-06-09] MEDS ORDERED: Melatonin 3 MG TAB PER TUBE SCH (20:15)
[2022-06-09] MEDS: Baclofen 10 MG TAB PER TUBE SCH (21:24)
[2022-06-09] MEDS: Atorvastatin Calcium 40 MG TAB PO SCH (21:24)
[2022-06-10] MEDS: Baclofen 10 MG TAB PER TUBE SCH ×2 (09:19→20:51)
[2022-06-10] MEDS: Aspirin 325 MG TAB PER TUBE SCH (09:19)
[2022-06-10] MEDS: Enoxaparin Sodium 40 MG/0.4 ML SYRINGE SC SCH (09:20)
[2022-06-10] MEDS: valACYclovir 500 MG TAB PO SCH ×2 (09:21→20:51)
[2022-06-10] MEDS: cloNIDine 0.1 MG TAB PER TUBE SCH ×2 (09:21→20:51)
[2022-06-10] MEDS: Acetaminophen 650 MG/20.3 ML UDCUP PER TUBE PRN (19:02)
[2022-06-10] MEDS: Atorvastatin Calcium 40 MG TAB PO SCH (20:51)
[2022-06-11] MEDS: cloNIDine 0.1 MG TAB PER TUBE SCH ×2 (10:05→21:30)
[2022-06-11] MEDS: Aspirin 325 MG TAB PER TUBE SCH (10:23)
[2022-06-11] MEDS: valACYclovir 500 MG TAB PO SCH ×2 (10:23→21:30)
[2022-06-11] MEDS: Baclofen 10 MG TAB PER TUBE SCH ×2 (10:23→21:31)
[2022-06-11] MEDS: Enoxaparin Sodium 40 MG/0.4 ML SYRINGE SC SCH (10:24)
[2022-06-11] MEDS: Atorvastatin Calcium 40 MG TAB PO SCH (21:31)
[2022-06-12] MEDS: Baclofen 10 MG TAB PER TUBE SCH (09:13)
[2022-06-12] MEDS: valACYclovir 500 MG TAB PO SCH ×2 (09:13→21:30)
[2022-06-12] MEDS: Aspirin 325 MG TAB PER TUBE SCH (09:13)
[2022-06-12] MEDS: cloNIDine 0.1 MG TAB PER TUBE SCH ×2 (09:13→21:30)
[2022-06-12] MEDS: Enoxaparin Sodium 40 MG/0.4 ML SYRINGE SC SCH (09:14)
[2022-06-12] MEDS ORDERED: Famotidine/PF 20 mg/2ml Vial SLOW IVP SCH (21:30)
[2022-06-12] MEDS ORDERED: diphenhydrAMINE 50 MG in Sodium Chloride 0.9% 50 ML IVPB SCH (21:30)
[2022-06-12] MEDS: Atorvastatin Calcium 40 MG TAB PO SCH (21:30)
[2022-06-13] MEDS: Aspirin 325 MG TAB PER TUBE SCH (09:02)
[2022-06-13] MEDS: cloNIDine 0.1 MG TAB PER TUBE SCH ×2 (09:02→20:48)
[2022-06-13] MEDS: valACYclovir 500 MG TAB PO SCH ×2 (09:03→20:49)
[2022-06-13] MEDS: Enoxaparin Sodium 40 MG/0.4 ML SYRINGE SC SCH (09:03)
[2022-06-13] MEDS: Atorvastatin Calcium 40 MG TAB PO SCH (20:49)
[2022-06-13] MEDS ORDERED: diphenhydrAMINE 50 MG in Sodium Chloride 0.9% 50 ML IVPB SCH (21:00)
[2022-06-13] MEDS ORDERED: Famotidine/PF 20 mg/2ml Vial SLOW IVP SCH (21:00)
[2022-06-13] MEDS ORDERED: diphenhydrAMINE 50 MG/ML VIAL IVP SCH (21:00)
[2022-06-14] MEDS ORDERED: diphenhydrAMINE 50 MG/ML VIAL IVP PRN (04:35)
[2022-06-14] MEDS ORDERED: Famotidine/PF 20 mg/2ml Vial SLOW IVP SCH (04:45)
[2022-06-14] MEDS: cloNIDine 0.1 MG TAB PER TUBE SCH ×2 (10:05→23:38)
[2022-06-14] MEDS: valACYclovir 500 MG TAB PO SCH (10:05)
[2022-06-14] MEDS: Aspirin 325 MG TAB PER TUBE SCH (10:05)
[2022-06-14] MEDS: Enoxaparin Sodium 40 MG/0.4 ML SYRINGE SC SCH (10:05)
[2022-06-14] MEDS: Baclofen 10 MG TAB PER TUBE SCH ×2 (10:07→22:32)
[2022-06-14] MEDS ORDERED: guaiFENesin ER 600 MG TAB PO SCH (21:00)
[2022-06-14] MEDS: Atorvastatin Calcium 40 MG TAB PO SCH (22:36)
[2022-06-15] MEDS ORDERED: GUAIFENESIN SF SOLN 200 MG/10 ML UDCUP PO SCH (09:00)
[2022-06-15] MEDS: guaiFENesin 200 MG TAB PO SCH ×2 (09:46→22:29)
[2022-06-15] MEDS: Aspirin 325 MG TAB PER TUBE SCH (09:46)
[2022-06-15] MEDS: Baclofen 10 MG TAB PER TUBE SCH ×2 (09:46→22:29)
[2022-06-15] MEDS: Enoxaparin Sodium 40 MG/0.4 ML SYRINGE SC SCH (09:46)
[2022-06-15] MEDS: cloNIDine 0.1 MG TAB PER TUBE SCH ×2 (09:47→22:29)
[2022-06-15] MEDS ORDERED: Scopolamine 1.5 mg/72 hour Patch TD SCH (20:00)
[2022-06-15] MEDS: Atorvastatin Calcium 40 MG TAB PO SCH (22:28)
[2022-06-16] MEDS: cloNIDine 0.1 MG TAB PER TUBE SCH ×2 (08:56→22:15)
[2022-06-16] MEDS: Aspirin 325 MG TAB PER TUBE SCH (08:57)
[2022-06-16] MEDS: Enoxaparin Sodium 40 MG/0.4 ML SYRINGE SC SCH (08:57)
[2022-06-16] MEDS: Baclofen 10 MG TAB PER TUBE SCH ×2 (08:57→22:16)
[2022-06-16] MEDS: guaiFENesin 200 MG TAB PO SCH ×2 (08:58→22:15)
[2022-06-16] MEDS ORDERED: Tamsulosin HCl 0.4 MG CAP PO SCH (12:45)
[2022-06-16] MEDS: Atorvastatin Calcium 40 MG TAB PO SCH (22:16)
[2022-06-17 05:58] LABS: Hemoglobin 11.1 g/dL (14.0-18.0); Platelet Count 409 thou/uL (130-400)
[2022-06-17] MEDS: Aspirin 325 MG TAB PER TUBE SCH (09:00)
[2022-06-17] MEDS: Baclofen 10 MG TAB PER TUBE SCH ×2 (09:00→22:43)
[2022-06-17] MEDS: cloNIDine 0.1 MG TAB PER TUBE SCH ×2 (09:02→20:29)
[2022-06-17] MEDS: guaiFENesin 200 MG TAB PO SCH ×2 (09:02→21:25)
[2022-06-17] MEDS: Enoxaparin Sodium 40 MG/0.4 ML SYRINGE SC SCH (09:03)
[2022-06-17 15:35] VITALS: BMI 21.1
[2022-06-17] MEDS ORDERED: Tamsulosin HCl 0.4 MG CAP PO SCH (21:00)
[2022-06-17] MEDS: Atorvastatin Calcium 40 MG TAB PO SCH (22:43)
[2022-06-18] MEDS: Enoxaparin Sodium 40 MG/0.4 ML SYRINGE SC SCH (07:37)
[2022-06-18] MEDS: Baclofen 10 MG TAB PER TUBE SCH (07:38)
[2022-06-18] MEDS: Aspirin 325 MG TAB PER TUBE SCH (07:38)
[2022-06-18] MEDS: guaiFENesin 200 MG TAB PO SCH (07:38)
[2022-06-18 07:40] VITALS: BP 109/75
[2022-06-18] MEDS: cloNIDine 0.1 MG TAB PER TUBE SCH (07:40)
[2022-06-18 08:26] VITALS: TEMP 97.6
== END 2022-06-18 09:15 | DRG 4 ==
LOC: ERS 11:15 → CCU 16:38 → NEURO 05-11 17:13 → CCU 05-19 16:06 → MSONC 06-09 02:28
PROVIDERS: ADMIT Internal Medicine; ATTEND Internal Medicine
PROC: 0D9670Z Drainage of Stomach with Drainage Device, Via Natural or Artificial Opening (ICD-10-PCS; 2022-05-10)
PROC: 0BH17EZ Insertion of Endotracheal Airway into Trachea, Via Natural or Artificial Opening (ICD-10-PCS; 2022-05-10)
PROC: 3E03329 Introduction of Other Anti-infective into Peripheral Vein, Percutaneous Approach (ICD-10-PCS; 2022-05-10)
PROC: 5A1935Z Respiratory Ventilation, Less than 24 Consecutive Hours (ICD-10-PCS; 2022-05-10)
PROC: 0DP0XUZ Removal of Feeding Device from Upper Intestinal Tract, External Approach (ICD-10-PCS; 2022-05-14)
PROC: 0DP0XUZ Removal of Feeding Device from Upper Intestinal Tract, External Approach (ICD-10-PCS; 2022-05-18)
PROC: 0DH67UZ Insertion of Feeding Device into Stomach, Via Natural or Artificial Opening (ICD-10-PCS; 2022-05-18)
PROC: 5A1955Z Respiratory Ventilation, Greater than 96 Consecutive Hours (ICD-10-PCS; principal; 2022-05-19)
PROC: 06HY33Z Insertion of Infusion Device into Lower Vein, Percutaneous Approach (ICD-10-PCS; 2022-05-19)
PROC: 04HY32Z Insertion of Monitoring Device into Lower Artery, Percutaneous Approach (ICD-10-PCS; 2022-05-19)
PROC: 3E043XZ Introduction of Vasopressor into Central Vein, Percutaneous Approach (ICD-10-PCS; 2022-05-19)
PROC: 0BH17EZ Insertion of Endotracheal Airway into Trachea, Via Natural or Artificial Opening (ICD-10-PCS; 2022-05-19)
PROC: 0BC68ZZ Extirpation of Matter from Right Lower Lobe Bronchus, Via Natural or Artificial Opening Endoscopic (ICD-10-PCS; 2022-05-22)
PROC: 0BC38ZZ Extirpation of Matter from Right Main Bronchus, Via Natural or Artificial Opening Endoscopic (ICD-10-PCS; 2022-05-22)
PROC: 0BC78ZZ Extirpation of Matter from Left Main Bronchus, Via Natural or Artificial Opening Endoscopic (ICD-10-PCS; 2022-05-22)
PROC: 0B113F4 Bypass Trachea to Cutaneous with Tracheostomy Device, Percutaneous Approach (ICD-10-PCS; 2022-05-26)
PROC: 0DH63UZ Insertion of Feeding Device into Stomach, Percutaneous Approach (ICD-10-PCS; 2022-05-26)
PROC: 30233N1 Transfusion of Nonautologous Red Blood Cells into Peripheral Vein, Percutaneous Approach (ICD-10-PCS; 2022-05-28)
DX: I63.332 Cerebral infarction due to thrombosis of left posterior cerebral artery (principal); R29.706 NIHSS score 6; Z20.822 Contact with and (suspected) exposure to COVID-19; J69.0 Pneumonitis due to inhalation of food and vomit; A41.9 Sepsis, unspecified organism; G93.41 Metabolic encephalopathy; J96.01 Acute respiratory failure with hypoxia; R57.8 Other shock; I46.9 Cardiac arrest, cause unspecified; H20.9 Unspecified iridocyclitis; N13.6 Pyonephrosis; R47.01 Aphasia; R33.8 Other retention of urine; R29.810 Facial weakness; R62.50 Unspecified lack of expected normal physiological development in childhood; F17.210 Nicotine dependence, cigarettes, uncomplicated; F10.10 Alcohol abuse, uncomplicated; R00.1 Bradycardia, unspecified; H02.402 Unspecified ptosis of left eyelid; R47.81 Slurred speech; R47.1 Dysarthria and anarthria; I10 Essential (primary) hypertension; E11.9 Type 2 diabetes mellitus without complications; R13.12 Dysphagia, oropharyngeal phase; D64.9 Anemia, unspecified; R74.01 Elevation of levels of liver transaminase levels; R45.1 Restlessness and agitation; T85.898A Other specified complication of other internal prosthetic devices, implants and grafts, initial encounter; R31.9 Hematuria, unspecified; E87.6 Hypokalemia; Y84.8 Other medical procedures as the cause of abnormal reaction of the patient, or of later complication, without mention of misadventure at the time of the procedure; Z83.3 Family history of diabetes mellitus; Z82.49 Family history of ischemic heart disease and other diseases of the circulatory system; Z82.3 Family history of stroke; Z71.6 Tobacco abuse counseling; Z71.51 Drug abuse counseling and surveillance of drug abuser; Z78.1 Physical restraint status
CPT/HCPCS: 31500; 31624; 36415; 36416; 36430; 36600; 51702; 70360; 70450; 70551; 71045; 74018; 74177; 80048; 80053; 80061; 80074; 80076; 80202; 81001; 81003; 81015; 82274; 82533; 82565; 82805; 83036; 83605; 83690; 83735; 84145; 84443; 84484; 85014; 85018; 85025; 85049; 85610; 85730; 86850; 86900; 86901; 87040; 87070; 87081; 87086; 87205; 87529; 87804; 87811; 93005; 93010; 93306; 93880; 94002; 94003; 94640; 95712; 95819; 95957; 96365; 96366; 96368; 96375; C9113; J0690; J0696; J1200; J1650; J1885; J2185; J2250; J2270; J2405; J2543; J2704; J2765; J3010; J3370; J3411; J3475; J3480; J3490; J7042; J7050; J7120; J7620; P9016; Q9967; S0028; U0002

== ENCOUNTER 2022-06-22 00:53 | Inpatient (IN) | payer OTHER ==
[2022-06-22] MEDS ORDERED: Ondansetron PF 4 MG/2 ML Vial IVP PRN (02:54)
[2022-06-22] MEDS ORDERED: Ondansetron ODT 4 MG TAB PO PRN (02:54)
[2022-06-22] MEDS ORDERED: Senokot S 8.6-50 MG TAB PO PRN (02:54)
[2022-06-22] MEDS ORDERED: Bisacodyl 5 MG TAB PO PRN (02:54)
[2022-06-22] MEDS ORDERED: HYDROcodone/Acetaminophen 5/325 mg Tablet PO PRN (02:54)
[2022-06-22] MEDS: Scopolamine 1.5 mg/72 hour Patch TD SCH (04:55)
[2022-06-22 05:51] LABS: #Basophils 0.1 thou/uL (0.0-0.2); #Eosinphils 0.1 thou/uL (0.0-0.7); #Lymphocytes 1.4 thou/uL (1.20-3.40); #Monocytes 0.5 thou/uL (0.11-0.59); #Neutrophils 5.3 thou/uL (1.40-6.50); %Basophils 1.3 % (0.0-1.0); %Eosinophils 1.5 % (0.0-10.0); %Lymphocytes 19.3 % (21.0-51.0); %Monocytes 6.7 % (0.0-10.0); %Neutrophils 71.2 % (42.0-75.0); Hemoglobin 10.5 g/dL (14.0-18.0); Mean Corpuscular HGB CONC 29.2 g/dL (32.0-36.0); Mean Corpuscular Hemoglobin 21.8 pg (27.0-31.0); Mean Corpuscular Volume 74.7 fl (78.0-98.0); Mean Platelet Volume 9.1 fL (7.4-10.4); Platelet Count 411 thou/uL (130-400); RBC Distribution Width 19.4 % (11.5-14.5); Red Blood Cell (RBC) Count 4.83 mill/uL (4.70-6.10); White Blood Cell (WBC) Count 7.4 thou/uL (4.8-10.8)
[2022-06-22 06:06] LABS: ALT (SGPT) 21 U/L (8-55); AST (SGOT) 13 U/L (5-34); Albumin 3.7 g/dL (3.5-5.0); Alkaline Phosphatase 127 U/L (40-110); Anion Gap 15 mmol/L (10-20); BUN (Urea Nitrogen) 24 mg/dL (8.4-25.7); Bilirubin, Total 0.3 mg/dL (0.2-1.2); Calc. Creatinine Clearance 0 mL/min (70-130); Calcium 9.3 mg/dL (7.8-10.44); Carbon Dioxide 23 mmol/L (22-29); Chloride 104 mmol/L (98-107); Estimated GFR 104; Glucose 92 mg/dL (70-105); Potassium 4.1 mmol/L (3.5-5.1); Protein, Total 7.7 g/dL (6.0-8.3); Sodium 138 mmol/L (136-145)
[2022-06-22] MEDS ORDERED: Midazolam HCl 2 mg/2 ml Vial ONE (08:48)
[2022-06-22] MEDS: Aspirin 325 MG TAB PER TUBE SCH (15:11)
[2022-06-22] MEDS: Enoxaparin Sodium 30 MG/0.3 ML SYRINGE SC SCH (15:11)
[2022-06-22] MEDS: cloNIDine 0.1 MG TAB PER TUBE SCH ×2 (15:11→21:43)
[2022-06-22] MEDS ORDERED: FLU VACC QS2022-23(6MOS UP)/PF 60 MCG/0.5 ML SYRINGE IM ONE (16:15)
[2022-06-22] MEDS ORDERED: Prevnar 13-Val Conj/PF 0.5 ML SYRINGE IM ONE (16:15)
[2022-06-22 17:09] LABS: SARS-CoV-2 NAA Rapid Test Not Detected (NotDetected)
[2022-06-22] MEDS: Atorvastatin Calcium 40 MG TAB PO SCH (21:43)
[2022-06-23] MEDS: cloNIDine 0.1 MG TAB PER TUBE SCH ×2 (10:04→21:34)
[2022-06-23] MEDS: Acetaminophen 325 MG TAB PO PRN ×2 (10:05→21:33)
[2022-06-23] MEDS: Enoxaparin Sodium 30 MG/0.3 ML SYRINGE SC SCH (10:06)
[2022-06-23] MEDS: Aspirin 325 MG TAB PER TUBE SCH (10:07)
[2022-06-23] MEDS ORDERED: Cepastat Lozenges 1 LOZ PO PRN (20:45)
[2022-06-23] MEDS ORDERED: Benzonatate 100 MG CAP PO PRN (20:45)
[2022-06-23] MEDS ORDERED: guaiFENesin 200 MG TAB PO PRN (20:46)
[2022-06-23] MEDS: Atorvastatin Calcium 40 MG TAB PO SCH (21:34)
[2022-06-24] MEDS: Enoxaparin Sodium 40 MG/0.4 ML SYRINGE SC SCH (07:54)
[2022-06-24] MEDS: Aspirin 325 MG TAB PER TUBE SCH (07:54)
[2022-06-24] MEDS: cloNIDine 0.1 MG TAB PER TUBE SCH ×2 (07:54→20:42)
[2022-06-24] MEDS: Sodium Chloride 0.9% 1,000 ML IV SCH ×2 (07:56→15:13)
[2022-06-24] MEDS ORDERED: Bupivacaine HCl 0.5%/Epinephrine 1:200,000/PF 30 ml Vial ONE (10:04)
[2022-06-24] MEDS ORDERED: Lidocaine 2% PF 5 ML VIAL ONE (10:04)
[2022-06-24] MEDS ORDERED: fentaNYL PF 100 MCG/2 ML SYRINGE ONE (10:06)
[2022-06-24] MEDS ORDERED: Norepinephrine 4 MG/4 ML VIAL ONE (10:12)
[2022-06-24] MEDS ORDERED: SUGAMMADEX SODIUM 200 MG/2 ML VIAL ONE (10:19)
[2022-06-24] MEDS ORDERED: Sodium Chloride 0.9% 100 ML ONE (10:27)
[2022-06-24] MEDS ORDERED: CEFAZOLIN 2 GM VIAL ONE (10:27)
[2022-06-24] MEDS ORDERED: Meperidine HCl/PF 25 MG/ML VIAL SLOW IVP PRN (10:31)
[2022-06-24] MEDS ORDERED: PACU-Morphine 4MG/ML VIAL SLOW IVP PRN (10:31)
[2022-06-24] MEDS ORDERED: Promethazine HCl 25 MG/ML VIAL IM PRN (10:31)
[2022-06-24] MEDS ORDERED: Promethazine HCl 25 MG/ML VIAL IVPB PRN (10:31)
[2022-06-24] MEDS ORDERED: PHENYLEPHRINE-NS 100 MCG/ML 10 ML SYRINGE ONE (10:45)
[2022-06-24] MEDS ORDERED: Succinylcholine Chloride 200 MG/10 ML VIAL ONE (10:45)
[2022-06-24] MEDS ORDERED: PROPOFOL 200 MG/20 ML VIAL ONE (10:45)
[2022-06-24] MEDS ORDERED: Naloxone HCl 0.4 mg/ml Vial ONE (10:45)
[2022-06-24] MEDS ORDERED: Midazolam HCl 2 mg/2 ml Vial ONE (11:23)
[2022-06-24] MEDS: Acetaminophen 325 MG TAB PO PRN (18:33)
[2022-06-24] MEDS: Atorvastatin Calcium 40 MG TAB PO SCH (20:41)
[2022-06-25] MEDS: Sodium Chloride 0.9% 1,000 ML IV SCH ×2 (03:34→12:34)
[2022-06-25] MEDS: Scopolamine 1.5 mg/72 hour Patch TD SCH (03:35)
[2022-06-25 04:17] LABS: #Basophils 0.1 thou/uL (0.0-0.2); #Eosinphils 0.2 thou/uL (0.0-0.7); #Lymphocytes 1.5 thou/uL (1.20-3.40); #Monocytes 0.5 thou/uL (0.11-0.59); %Basophils 1.1 % (0.0-1.0); %Eosinophils 2.5 % (0.0-10.0); %Lymphocytes 20.6 % (21.0-51.0); %Monocytes 7.1 % (0.0-10.0); %Neutrophils 68.8 % (42.0-75.0); Hemoglobin 10.1 g/dL (14.0-18.0); Mean Corpuscular Hemoglobin 21.8 pg (27.0-31.0); Mean Corpuscular Volume 75.1 fl (78.0-98.0); Mean Platelet Volume 9.6 fL (7.4-10.4); Platelet Count 334 thou/uL (130-400); RBC Distribution Width 19.2 % (11.5-14.5); Red Blood Cell (RBC) Count 4.62 mill/uL (4.70-6.10); White Blood Cell (WBC) Count 7.2 thou/uL (4.8-10.8)
[2022-06-25 04:27] LABS: Anion Gap 11 mmol/L (10-20); BUN (Urea Nitrogen) 23 mg/dL (8.4-25.7); Calc. Creatinine Clearance 106 mL/min (70-130); Carbon Dioxide 26 mmol/L (22-29); Chloride 106 mmol/L (98-107); Estimated GFR 107; Glucose 93 mg/dL (70-105); Sodium 139 mmol/L (136-145)
[2022-06-25] MEDS: Enoxaparin Sodium 40 MG/0.4 ML SYRINGE SC SCH (08:08)
[2022-06-25] MEDS: cloNIDine 0.1 MG TAB PER TUBE SCH ×2 (08:08→20:49)
[2022-06-25] MEDS: Aspirin 325 MG TAB PER TUBE SCH (08:10)
[2022-06-25] MEDS: Acetaminophen 325 MG TAB PO PRN (09:49)
[2022-06-25] MEDS: Atorvastatin Calcium 40 MG TAB PO SCH (20:49)
[2022-06-26] MEDS: Sodium Chloride 0.9% 1,000 ML IV SCH ×2 (02:57→11:06)
[2022-06-26 06:19] LABS: #Basophils 0.1 thou/uL (0.0-0.2); #Eosinphils 0.2 thou/uL (0.0-0.7); #Lymphocytes 1.7 thou/uL (1.20-3.40); #Monocytes 0.3 thou/uL (0.11-0.59); %Basophils 1.1 % (0.0-1.0); %Eosinophils 3.1 % (0.0-10.0); %Lymphocytes 22.8 % (21.0-51.0); %Monocytes 4.4 % (0.0-10.0); %Neutrophils 68.6 % (42.0-75.0); Hemoglobin 10.8 g/dL (14.0-18.0); Mean Corpuscular HGB CONC 29.5 g/dL (32.0-36.0); Mean Corpuscular Hemoglobin 22.3 pg (27.0-31.0); Mean Corpuscular Volume 75.7 fl (78.0-98.0); Mean Platelet Volume 9.2 fL (7.4-10.4); Platelet Count 370 thou/uL (130-400); Red Blood Cell (RBC) Count 4.85 mill/uL (4.70-6.10); White Blood Cell (WBC) Count 7.2 thou/uL (4.8-10.8)
[2022-06-26 06:51] LABS: Anion Gap 11 mmol/L (10-20); BUN (Urea Nitrogen) 18 mg/dL (8.4-25.7); Calc. Creatinine Clearance 112 mL/min (70-130); Calcium 8.9 mg/dL (7.8-10.44); Carbon Dioxide 24 mmol/L (22-29); Chloride 109 mmol/L (98-107); Estimated GFR 106; Glucose 114 mg/dL (70-105); Potassium 3.8 mmol/L (3.5-5.1); Sodium 140 mmol/L (136-145)
[2022-06-26] MEDS: Aspirin 325 MG TAB PER TUBE SCH (08:00)
[2022-06-26] MEDS: cloNIDine 0.1 MG TAB PER TUBE SCH (08:00)
[2022-06-26] MEDS: Enoxaparin Sodium 40 MG/0.4 ML SYRINGE SC SCH (08:00)
[2022-06-26 13:20] VITALS: BMI 23.7
[2022-06-26 15:19] VITALS: BP 99/64; TEMP 98.7
== END 2022-06-26 15:28 | DRG 11 ==
LOC: ERS 00:53 → ERHOLD 02:18 → 2NO 13:03 → OBSVTOIN 06-23 15:15 → CCU 06-24 10:59 → T4-B 06-25 13:23
PROVIDERS: ADMIT Internal Medicine; ATTEND Internal Medicine
PROC: 0B110F4 Bypass Trachea to Cutaneous with Tracheostomy Device, Open Approach (ICD-10-PCS; principal; 2022-06-24)
DX: J95.03 Malfunction of tracheostomy stoma (principal); J96.21 Acute and chronic respiratory failure with hypoxia; Z20.822 Contact with and (suspected) exposure to COVID-19; I10 Essential (primary) hypertension; F79 Unspecified intellectual disabilities; R13.12 Dysphagia, oropharyngeal phase; Z79.51 Long term (current) use of inhaled steroids; Z79.82 Long term (current) use of aspirin; Z79.899 Other long term (current) drug therapy; I69.991 Dysphagia following unspecified cerebrovascular disease
CPT/HCPCS: 36415; 71045; 80048; 80053; 85025; 96374; C1889; J0330; J1650; J2001; J2250; J2310; J2704; J3490; J7050; U0002

== ENCOUNTER 2022-07-05 03:07 | Observation (INO) | payer OTHER ==
[2022-07-05 06:35] LABS: #Basophils 0.1 thou/uL (0.0-0.2); #Eosinphils 0.2 thou/uL (0.0-0.7); #Lymphocytes 1.6 thou/uL (1.20-3.40); #Monocytes 0.4 thou/uL (0.11-0.59); #Neutrophils 3.9 thou/uL (1.40-6.50); %Basophils 1.1 % (0.0-1.0); %Eosinophils 3.7 % (0.0-10.0); %Lymphocytes 26.5 % (21.0-51.0); %Monocytes 5.9 % (0.0-10.0); %Neutrophils 62.8 % (42.0-75.0); Hemoglobin 11.2 g/dL (14.0-18.0); Mean Corpuscular Hemoglobin 22.3 pg (27.0-31.0); Mean Corpuscular Volume 74.5 fl (78.0-98.0); Mean Platelet Volume 9.9 fL (7.4-10.4); Platelet Count 577 10x3/uL (130-400); Red Blood Cell (RBC) Count 5.02 mill/uL (4.70-6.10); White Blood Cell (WBC) Count 6.1 10x3/uL (4.8-10.8)
[2022-07-05 08:35] LABS: Albumin 3.3 g/dL (3.5-5.0)
[2022-07-05 08:36] LABS: Chloride 100 mmol/L (98-107); Potassium 4.3 mmol/L (3.5-5.1); Sodium 134 mmol/L (136-145)
[2022-07-05 08:37] LABS: Glucose 95 mg/dL (70-105); Protein, Total 7.3 g/dL (6.0-8.3)
[2022-07-05 08:38] LABS: Carbon Dioxide 23 mmol/L (22-29)
[2022-07-05 08:39] LABS: Anion Gap 15 mmol/L (10-20); Bilirubin, Total 0.4 mg/dL (0.2-1.2)
[2022-07-05 08:40] LABS: Alkaline Phosphatase 112 U/L (40-110)
[2022-07-05 08:41] LABS: BUN (Urea Nitrogen) 18 mg/dL (8.4-25.7); Calc. Creatinine Clearance 0 mL/min (70-130); Estimated GFR 110
[2022-07-05 08:42] LABS: AST (SGOT) 15 U/L (5-34)
[2022-07-05 08:43] LABS: ALT (SGPT) 26 U/L (8-55)
[2022-07-05] MEDS ORDERED: Lansoprazole 3 MG/ML ORAL SUSPENSION PER TUBE SCH (09:00)
[2022-07-05] MEDS: Sodium Chloride 0.9% 1,000 ML IV SCH ×2 (09:01→23:49)
[2022-07-05] MEDS: Scopolamine 1.5 mg/72 hour Patch TD SCH (09:24)
[2022-07-05] MEDS: Aspirin Chewable 81 MG TAB PO SCH (09:24)
[2022-07-05] MEDS: cloNIDine 0.1 MG TAB PER TUBE SCH ×2 (09:25→20:52)
[2022-07-05 09:52] VITALS: BMI 22.1
[2022-07-05] MEDS ORDERED: FLU VACC QS2022-23(6MOS UP)/PF 60 MCG/0.5 ML SYRINGE IM ONE (15:45)
[2022-07-05] MEDS: Atorvastatin Calcium 40 MG TAB PO SCH (20:51)
[2022-07-06] MEDS: cloNIDine 0.1 MG TAB PER TUBE SCH ×2 (08:01→20:40)
[2022-07-06] MEDS: Aspirin Chewable 81 MG TAB PO SCH (08:01)
[2022-07-06] MEDS: Lansoprazole 15 MG/5 ML (BATCHED)UDCUP PER TUBE SCH (08:01)
[2022-07-06] MEDS: Sodium Chloride 0.9% 1,000 ML IV SCH (12:34)
[2022-07-06] MEDS: Atorvastatin Calcium 40 MG TAB PO SCH (20:40)
[2022-07-07] MEDS: Sodium Chloride 0.9% 1,000 ML IV SCH ×2 (01:40→14:00)
[2022-07-07] MEDS: Lansoprazole 15 MG/5 ML (BATCHED)UDCUP PER TUBE SCH (08:34)
[2022-07-07] MEDS: cloNIDine 0.1 MG TAB PER TUBE SCH ×2 (08:34→20:46)
[2022-07-07] MEDS: Aspirin Chewable 81 MG TAB PO SCH (08:34)
[2022-07-07] MEDS: Atorvastatin Calcium 40 MG TAB PO SCH (20:46)
[2022-07-08] MEDS: Sodium Chloride 0.9% 1,000 ML IV SCH ×2 (04:24→18:48)
[2022-07-08] MEDS: cloNIDine 0.1 MG TAB PER TUBE SCH ×2 (09:15→20:39)
[2022-07-08] MEDS: Aspirin Chewable 81 MG TAB PO SCH (09:15)
[2022-07-08] MEDS: Lansoprazole 15 MG/5 ML (BATCHED)UDCUP PER TUBE SCH (09:16)
[2022-07-08] MEDS: Scopolamine 1.5 mg/72 hour Patch TD SCH (09:16)
[2022-07-08] MEDS: Atorvastatin Calcium 40 MG TAB PO SCH (20:39)
[2022-07-09] MEDS: Sodium Chloride 0.9% 1,000 ML IV SCH (00:51)
[2022-07-09] MEDS: Aspirin Chewable 81 MG TAB PO SCH (09:52)
[2022-07-09] MEDS: cloNIDine 0.1 MG TAB PER TUBE SCH (09:52)
[2022-07-09] MEDS: Lansoprazole 15 MG/5 ML (BATCHED)UDCUP PER TUBE SCH (09:53)
[2022-07-09 16:11] VITALS: BP 123/78; TEMP 99.5
[2022-07-09] MEDS: Atorvastatin Calcium 40 MG TAB PO SCH (20:47)
== END 2022-07-09 20:49 ==
LOC: ERS 03:07 → SURG A 05:37
PROVIDERS: ADMIT Internal Medicine; ATTEND Internal Medicine
DX: J95.09 Other tracheostomy complication (principal); I10 Essential (primary) hypertension; E78.5 Hyperlipidemia, unspecified; I69.391 Dysphagia following cerebral infarction; R13.10 Dysphagia, unspecified; R62.50 Unspecified lack of expected normal physiological development in childhood; E11.9 Type 2 diabetes mellitus without complications; R33.9 Retention of urine, unspecified; Z79.82 Long term (current) use of aspirin; Z79.899 Other long term (current) drug therapy
CPT/HCPCS: 36415; 80053; 85025; 96360; 96361; 99284; G0378; J7050

== ENCOUNTER 2022-09-10 18:13 | Emergency (ER) | payer OTHER ==
[2022-09-10 19:51] LABS: Hemoglobin 11.3 g/dL (14.0-18.0); Mean Corpuscular HGB CONC 30.4 g/dL (32.0-36.0); Mean Corpuscular Hemoglobin 22.5 pg (27.0-31.0); Mean Corpuscular Volume 74.1 fl (78.0-98.0); Mean Platelet Volume 8.6 fL (7.4-10.4); Platelet Count 489 10x3/uL (130-400); RBC Distribution Width 15.9 % (11.5-14.5); Red Blood Cell (RBC) Count 5.01 mill/uL (4.70-6.10); White Blood Cell (WBC) Count 6.6 10x3/uL (4.8-10.8)
[2022-09-10 19:54] LABS: #Eosinphils 0.1 thou/uL (0.0-0.7); #Lymphocytes 1.8 thou/uL (1.20-3.40); #Monocytes 0.4 thou/uL (0.11-0.59); #Neutrophils 4.3 thou/uL (1.40-6.50); %Basophils 0.3 % (0.0-1.0); %Eosinophils 2.3 % (0.0-10.0); %Lymphocytes 26.7 % (21.0-51.0); %Monocytes 5.3 % (0.0-10.0); %Neutrophils 65.4 % (42.0-75.0)
[2022-09-10 20:06] LABS: ALT (SGPT) 8 U/L (8-55); AST (SGOT) 11 U/L (5-34); Albumin 3.7 g/dL (3.5-5.0); Alkaline Phosphatase 108 U/L (40-110); Anion Gap 13 mmol/L (10-20); BUN (Urea Nitrogen) 20 mg/dL (8.4-25.7); Bilirubin, Total 0.2 mg/dL (0.2-1.2); Calc. Creatinine Clearance 0 mL/min (70-130); Calcium 8.9 mg/dL (7.8-10.44); Carbon Dioxide 26 mmol/L (22-29); Chloride 102 mmol/L (98-107); Estimated GFR 107; Globulin 3.8 g/dL (2.4-3.5); Glucose 112 mg/dL (70-105); Potassium 3.8 mmol/L (3.5-5.1); Protein, Total 7.5 g/dL (6.0-8.3); Sodium 137 mmol/L (136-145)
[2022-09-10 21:06] LABS: Bacteria/HPF 4+ HPF (None Seen); Bilirubin Negative (Negative); Blood, Urine Negative (Negative); Clarity Turbid (Clear); Glucose, Urine (Dipstick) Normal (Negative); Ketone, Urine Negative (Negative); Leukocyte 500 Leu/uL (Negative); Mucous/LPF Rare LPF (<2+); Nitrite 1+ (Negative); Protein, Urine (Dipstick) 30 mg/dL (Neg-Trace); Specific Gravity, Urine 1.021 (1.002-1.036); Squamous Epithelial None Seen HPF (0-3); WBC/HPF Greater than 50 HPF (0-3)
[2022-09-10 21:14] LABS: RBC/HPF 0-3 HPF (0-3)
== END 2022-09-10 22:02 | disposition home or self-care (01) ==
LOC: ERS 18:13
DX: T83.511A Infection and inflammatory reaction due to indwelling urethral catheter, initial encounter (principal); N30.00 Acute cystitis without hematuria; I10 Essential (primary) hypertension
CPT/HCPCS: 36415; 51702; 80053; 81003; 81015; 85025; 87077; 87086; 87186

== ENCOUNTER 2022-10-14 11:44 | Outpatient (CLI) | payer OTHER ==
[2022-10-14 12:37] LABS: Mean Corpuscular HGB CONC 29.9 g/dL (32.0-36.0); Mean Corpuscular Hemoglobin 21.7 pg (27.0-33.0); Mean Corpuscular Volume 72.6 fl (81.2-95.1); Mean Platelet Volume 10.7 fl (7.4-10.4); Platelet Count 433 10x3/uL (150-450); RBC Distribution Width 17.5 % (11.5-14.5); Red Blood Cell (RBC) Count 5.07 10x6/uL (4.32-5.72); White Blood Cell (WBC) Count 6.2 10x3/uL (3.5-10.5)
[2022-10-14 13:01] LABS: PTT 28.5 sec (22.0-33.0); Prothrombin Time 10.9 sec (9.5-12.1)
[2022-10-14 13:08] LABS: Anion Gap 13 mmol/L (10-20); BUN (Urea Nitrogen) 23 mg/dL (8.4-25.7); Calc. Creatinine Clearance 0 mL/min (70-130); Calcium 9.3 mg/dL (7.8-10.44); Carbon Dioxide 27 mmol/L (22-29); Chloride 104 mmol/L (98-107); Estimated GFR 107; Glucose 73 mg/dL (70-105); Potassium 4.4 mmol/L (3.5-5.1); Sodium 140 mmol/L (136-145)
== END 2022-10-14 11:45 | disposition home or self-care (01) ==
LOC: LABBT 11:44
PROVIDERS: ATTEND Urology
DX: Z01.812 Encounter for preprocedural laboratory examination (principal); N47.2 Paraphimosis; R33.9 Retention of urine, unspecified
CPT/HCPCS: 80048; 85027; 85610; 85730; 87086

== ENCOUNTER 2022-10-19 11:52 | Observation (INO) | payer OTHER ==
[2022-10-19] MEDS ORDERED: Vancomycin 1 GM/200 ML (FROZEN) BAG ONE (13:33)
[2022-10-19] MEDS ORDERED: Midazolam HCl 2 mg/2 ml Vial ONE (15:00)
[2022-10-19] MEDS ORDERED: fentaNYL PF 100 MCG/2 ML SYRINGE ONE (15:00)
[2022-10-19] MEDS ORDERED: Bacitracin Zinc Ointment 30 gm TUBE ONE (15:18)
[2022-10-19] MEDS ORDERED: Bupivacaine 0.25% HCL 30 ML VIAL ONE (15:18)
[2022-10-19] MEDS ORDERED: Lidocaine 1% PF 5 ML VIAL ONE (15:22)
[2022-10-19] MEDS ORDERED: Dexamethasone 20 MG/5 ML VIAL ONE (15:22)
[2022-10-19] MEDS ORDERED: PROPOFOL 200 MG/20 ML VIAL ONE (15:22)
[2022-10-19] MEDS ORDERED: Ondansetron PF 4 MG/2 ML Vial ONE (15:22)
[2022-10-19] MEDS ORDERED: PHENYLEPHRINE-NS 100 MCG/ML 10 ML SYRINGE ONE (15:22)
[2022-10-19] MEDS ORDERED: ePHEDrine 50 MG/ML VIAL ONE (15:22)
[2022-10-19] MEDS ORDERED: Promethazine HCl 25 MG/ML VIAL IM PRN (17:34)
[2022-10-19] MEDS ORDERED: Ondansetron HCl/PF 4 MG/2 ML Vial IVP PRN (17:34)
[2022-10-19 19:38] LABS: SARS-CoV-2 NAA Rapid Test Not Detected (NotDetected)
[2022-10-19] MEDS ORDERED: Triple Antibiotic Oint 1 GM Packet TOP SCH (21:00)
[2022-10-19 21:14] VITALS: BMI 20.8
[2022-10-19] MEDS: D5 1/2 NS w/20 mEq KCL 1,000 ML IV SCH (21:24)
[2022-10-19] MEDS: Triple Antibiotic Ointment 30 GM TUBE TOP SCH (22:39)
[2022-10-20] MEDS: D5 1/2 NS w/20 mEq KCL 1,000 ML IV SCH ×2 (01:07→09:39)
[2022-10-20] MEDS ORDERED: Vancomycin 1 GM in Premix Bag 1 BAG IVPB SCH (02:00)
[2022-10-20] MEDS: Triple Antibiotic Ointment 30 GM TUBE TOP SCH ×2 (09:39→12:37)
[2022-10-20] MEDS ORDERED: hydrALAZINE 20 MG/ML VIAL SLOW IVP PRN (11:45)
[2022-10-20] MEDS ORDERED: guaiFENesin/Codeine 200 mg/20 mg 10 ml Cup PER TUBE PRN (11:46)
[2022-10-20] MEDS ORDERED: Ipratropium/Albuterol 3 ML NEB NEB PRN (11:48)
[2022-10-20 12:00] VITALS: BP 93/60; TEMP 97.3
[2022-10-20] MEDS ORDERED: Scopolamine 1.5 mg/72 hour Patch TD SCH (12:00)
[2022-10-20] MEDS ORDERED: Atorvastatin Calcium 40 MG TAB PER TUBE SCH (21:00)
[2022-10-21] MEDS ORDERED: Aspirin 81 mg Enteric Coated Tablet PER TUBE SCH (09:00)
== END 2022-10-20 14:18 | disposition home or self-care (01) ==
LOC: SDC 11:52 → INTOOBSV 20:59 → T4-B 20:59
PROVIDERS: ADMIT Urology; ATTEND Urology
PROC: 0T9B30Z Drainage of Bladder with Drainage Device, Percutaneous Approach (ICD-10-PCS; principal; 2022-10-19)
PROC: 0VTTXZZ Resection of Prepuce, External Approach (ICD-10-PCS; 2022-10-19)
DX: N47.2 Paraphimosis (principal); R33.9 Retention of urine, unspecified; N32.89 Other specified disorders of bladder; N32.3 Diverticulum of bladder; N30.90 Cystitis, unspecified without hematuria; I10 Essential (primary) hypertension; E78.5 Hyperlipidemia, unspecified; R62.50 Unspecified lack of expected normal physiological development in childhood; E11.9 Type 2 diabetes mellitus without complications; I69.391 Dysphagia following cerebral infarction; R13.10 Dysphagia, unspecified; Z88.8 Allergy status to other drugs, medicaments and biological substances; Z93.1 Gastrostomy status; Z20.822 Contact with and (suspected) exposure to COVID-19
CPT/HCPCS: 36416; 88304; J1100; J2250; J2405; J2704; J3370-JW; J3480; J3490; S0020; U0002

== ENCOUNTER 2023-03-05 08:06 | Emergency (ER) | payer OTHER | END 2023-03-05 10:32 | disposition home or self-care (01) | LOC: ERS 08:06 | DX: K94.20 Gastrostomy complication, unspecified (principal); I10 Essential (primary) hypertension | CPT/HCPCS: 99282 ==

== ENCOUNTER 2023-10-24 14:49 | Emergency (ER) | payer OTHER | END 2023-10-24 16:57 | disposition home or self-care (01) | LOC: ERS 14:49 | DX: K94.20 Gastrostomy complication, unspecified (principal); I10 Essential (primary) hypertension; Z87.891 Personal history of nicotine dependence | CPT/HCPCS: 43762; 74018 ==

== ENCOUNTER 2025-06-28 10:22 | Emergency (ER) | payer MEDICAID | END 2025-06-28 10:45 | disposition home or self-care (01) | LOC: ERS 10:22 | DX: K94.23 Gastrostomy malfunction (principal); Z86.73 Personal history of transient ischemic attack (TIA), and cerebral infarction without residual deficits; Z87.891 Personal history of nicotine dependence | CPT/HCPCS: 99282 ==